=== PATIENT | female | born 1935 | race Caucasian/White ===

== ENCOUNTER 2019-04-28 00:51 | Inpatient (IN) | payer MEDICARE, BC ==
[2019-04-28] MEDS ORDERED: SODIUM CHLORIDE 0.9% 500 ML 500 ML IV STA (01:35)
[2019-04-28 02:50] LABS: Albumin 4.5 g/dL (3.5-5.0); Calcium 9.5 mg/dL (8.4-10.2); Total Bilirubin 0.5 mg/dL (0.2-1.3); Total Protein 7.8 g/dL (6.3-8.2)
[2019-04-28 02:51] LABS: Potassium 4.1 mmol/L (3.5-5.1)
[2019-04-28 03:01] LABS: Basophils # (A) 0.1 k/uL (0-0.2); Basophils % (A) 1 %; Eosinophils # (A) 0.3 k/uL (0-0.7); Eosinophils % (A) 4 %; HCT 43.3 % (34.0-46.0); HGB 14.2 gm/dL (11.4-16.0); Lymphocytes # (A) 1.4 k/uL (1.0-4.8); Lymphocytes % (A) 19 %; MCH 29.9 pg (25.0-35.0); MCHC 32.9 g/dL (31.0-37.0); Mean Platelet Volume 6.9; Monocytes # (A) 0.4 k/uL (0-1.0); Monocytes % (A) 6 %; Neutrophils # (A) 5.2 k/uL (1.3-7.7); Neutrophils % (A) 68 %; Platelet Count 250 k/uL (150-450); RBC 4.76 m/uL (3.80-5.40); RDW 12.9 % (11.5-15.5); WBC 7.6 k/uL (3.8-10.6)
[2019-04-28 03:10] LABS: Appearance,Urine Clear (Clear); Bacteria,Urine Rare /hpf; Bilirubin,Urine Negative (Negative); Blood,Urine Negative (Negative); Color,Urine Light Yellow; Glucose,Urine (UA) Negative (Negative); Ketones,Urine Negative (Negative); Leukocyte Esterase,Urine Small (Negative); Mucus,Urine Rare /hpf; Nitrite,Urine Negative (Negative); Protein,Urine Trace (Negative); RBC,Urine 1 /hpf (0-5); Specific Gravity,Urine 1.006 (1.001-1.035); Squamous Epithelial Cell,Urine <1 /hpf (0-4); Urobilinogen,Urine <2.0 mg/dL (<2.0); WBC,Urine 4 /hpf (0-5)
[2019-04-28 03:13] LABS: Creatine Kinase MB 1.2 ng/mL (0.0-2.4); Troponin I 0.025 ng/mL (0.000-0.034)
[2019-04-28] MEDS ORDERED: SODIUM CHLORIDE 0.9% 1,000 ML IV SCH (03:15)
--- NOTE | 2019-04-28 03:16 | US ---
EXAM: US Abdomen Limited, Right Upper Quadrant CLINICAL HISTORY: ITS.REASON US Reason: epigastric pain TECHNIQUE: Real-time ultrasound of the right upper quadrant with image documentation. COMPARISON: No relevant prior studies available. FINDINGS: Liver: The liver measures 13.7 cm in length. Cystic structures measuring up to 2.7 cm. Gallbladder: Distended gallbladder with cholelithiasis. No significant gallbladder wall thickening. Positive sonographic Grande's sign. Common bile duct: The common bile duct measures 7 mm. Pancreas: Prominent pancreatic duct. Pancreas not well seen. Right kidney: The right kidney is not well seen with large anechoic structures which may represent cysts, hydronephrosis, or other etiology. IMPRESSION: 1. Distended gallbladder with cholelithiasis. No significant gallbladder wall thickening or biliary dilatation. Positive sonographic Grande's sign. Correlate clinically regarding cholecystitis. 2. Prominent pancreatic duct. 3. The right kidney is not well seen with large anechoic structures which may represent cysts, hydronephrosis, or other etiology. 4. Hepatic cystic structures
--- NOTE | 2019-04-28 04:26 | ED ---
Abdominal Pain HPI - General Source: patient, family Mode of arrival: wheelchair Limitations: no limitations <Sigrid Morton - Last Filed: 04/28/19 18:16> <Maday Shannon - Last Filed: 04/28/19 22:12> - General Chief Complaint: Abdominal Pain Stated Complaint: Abdominal Pain Time Seen by Provider: 04/28/19 01:34 - History of Present Illness Initial Comments: The 84-year-old female presenting today for chief complaint of epigastric pain. Patient states that after taking a melatonin around 12 PM she began experiencing epigastric pain. She states that sharp at times radiates towards her back. Patient denies any chest pain or shortness of breath. Patient denies any cough fever chills or night sweats. Patient denies any diarrhea or vomiting. Patient states the pain has been consistent. Patient describes as a sharp pain. Patient denies any abuse of NSAIDs or chronic steroid use. She denies any a lcohol abuse. Patient denies history of PUD. Remaining review of systems negative. Upon arrival patient appears well signs of acute distress. Afebrile blood pressure elevated remaining her vital signs within acceptable limits. (Sigrid Morton) - Related Data Home Medications Medication Instructions Recorded Confirmed LORazepam [Ativan] 0.5 mg PO HS PRN 08/20/16 04/28/19 Metoprolol Succinate [Toprol XL] 25 mg PO QAM 08/20/16 04/28/19 amLODIPine [Norvasc] 10 mg PO QAM 08/20/16 04/28/19 Albuterol Inhaler [Ventolin Hfa 2 puff INHALATION RT-Q6H PRN 04/28/19 04/28/19 Inhaler] Previous Rx's Medication Instructions Recorded Carvedilol [Coreg] 3.125 mg PO BID #60 tablet 04/28/19 Omeprazole [PriLOSEC] 40 mg PO FELY-TRYEE #14 capsule. 04/28/19 Allergies Allergy/AdvReac Type Severity Reaction Status Date / Time azithromycin [From Zithromax] Allergy Rash/Hives Verified 08/20/16 14:02 fluconazole [From Diflucan] Allergy Unknown Verified 08/20/16 14:02 levofloxacin [From Levaquin] Allergy Rash/Hives Verified 08/20/16 14:02 Penicillins Allergy Rash/Hives Verified 08/20/16 14:02 Review of Systems ROS Other: All systems not noted in ROS Statement are negative. <Sigrid Morton - Last Filed: 04/28/19 18:16> ROS Other: All systems not noted in ROS Statement are negative. <Maday Shannon P - Last Filed: 04/28/19 22:12> ROS Statement: Those systems with pertinent positive or pertinent negative responses have been documented in the HPI. Past Medical History Past Medical History: Asthma, Cancer, Hypertension Additional Past Medical History / Comment(s): BREAST CA. History of Any Multi-Drug Resistant Organisms: None Reported Past Surgical History: Breast Surgery, Hysterectomy, Tonsillectomy Additional Past Surgical History / Comment(s): RIGHT BREAST LUMPECTOMY (NO CHEMO OR RAD). VEIN STRIPPING Past Anesthesia/Blood Transfusion Reactions: Postoperative Nausea & Vomiting (PONV) Past Psychological History: Anxiety Smoking Status: Never smoker Past Alcohol Use History: None Reported Past Drug Use History: None Reported - Past Family History Mother Family Medical History: Congestive Heart Failure (CHF) <Sigrid Morton - Last Filed: 04/28/19 18:16> General Exam Limitations: no limitations <Sigrid Morton - Last Filed: 04/28/19 18:16> - General Exam Comments Initial Comments: General: The patient is awake and alert, in no distress, and does not appear acutely ill. Eye: Pupils are equal, round and reactive to light, extra-ocular movements are intact. No nystagmus. There is normal conjunctiva bilaterally. No signs of i cterus. Ears, nose, mouth and throat: There are moist mucous membranes and no oral lesions. Neck: The neck is supple, there is no tenderness or JVD. Cardiovascular: There is a regular rate and rhythm. No murmur, rub or gallop is appreciated. Respiratory: Lungs are clear to auscultation, respirations are non-labored, breath sounds are equal. No wheezes, stridor, rales, or rhonchi. Gastrointestinal: Soft, non-distended, abdomen tender to RUQ palpation, (+) murphys sign, abdomen is without masses or organomegaly noted. There is no rebound or guarding present. No CVA tenderness. Bowel sounds are unremarkable. Musculoskeletal: Normal ROM, no tenderness. Strength 5/5. Sensation intact. Pulses equal bilaterally 2+. Neurological: A&O x 3. CN II-XII intact, There are no obvious motor or sensory deficits. Coordination appears grossly intact. Speech is normal. Skin: Skin is warm and dry and no rashes or lesions are noted. Psychiatric: Cooperative, appropriate mood & affect, normal judgment. (Sigrid Morton) Course Vital Signs 04/28/19 04/28/19 04/28/19 01:24 03:46 05:40 Temperature 98.2 F 98.1 F 97.9 F Pulse Rate 95 81 76 Respiratory 20 18 18 Rate Blood Pressure 156/89 183/97 167/90 O2 Sat by Pulse 98 96 94 L Oximetry Medical Decision Making - Lab Data Result diagrams: 04/28/19 02:19 04/28/19 02:19 <Sigrid Morton - Last Filed: 04/28/19 18:16> - Lab Data Result diagrams: 04/28/19 02:19 04/28/19 02:19 <Maday Shannon - Last Filed: 04/28/19 22:12> - Medical Decision Making 84-year-old female presenting today for chief complaint of epigastric pain that began shortly after 12 AM. She states it happened after taking melatonin. Patient was is a Grande sign on examination. Increased Alk Phos. US reveals cholelithiasis. CT revealed findings were suggestive of acute cholecystitis. Patient was placed nothing by mouth and given IV fluids as well as pain management in the emergency department. Patient will be admitted for surgical consultations. Discussed case with attending provider Dr. Shannon prior to patient admission, she spoke with admitting provider Dr. Torres. (Sigrid Morton) I personally saw and evaluated the patient, reviewed the patient's labs, imaging and agree with disposition. Patient care was discussed with surgery on-call Dr. Vargas who agrees with plan for admission to internal medicine with consult to general surgery. (Maday Shannon) - Lab Data Lab Results 04/28/19 04/28/19 04/28/19 Range/Units 02:19 02:19 02:19 WBC 7.6 (3.8-10.6) k/uL RBC 4.76 (3.80-5.40) m/uL Hgb 14.2 (11.4-16.0) gm/dL Hct 43.3 (34.0-46.0) % MCV 91.0 (80.0-100.0) fL MCH 29.9 (25.0-35.0) pg MCHC 32.9 (31.0-37.0) g/dL RDW 12.9 (11.5-15.5) % Plt Count 250 (150-450) k/uL Neutrophils % 68 % Lymphocytes % 19 % Monocytes % 6 % Eosinophils % 4 % Basophils % 1 % Neutrophils # 5.2 (1.3-7.7) k/uL Lymphocytes # 1.4 (1.0-4.8) k/uL Monocytes # 0.4 (0-1.0) k/uL Eosinophils # 0.3 (0-0.7) k/uL Basophils # 0.1 (0-0.2) k/uL Sodium 139 (137-145) mmol/L Potassium 4.1 (3.5-5.1) mmol/L Chloride 103 (98-107) mmol/L Carbon Dioxide 25 (22-30) mmol/L Anion Gap 11 mmol/L BUN 31 H (7-17) mg/dL Creatinine 1.39 H (0.52-1.04) mg/dL Est GFR (CKD-EPI)AfAm 40 (>60 ml/min/1.73 sqM) Est GFR (CKD-EPI)NonAf 35 (>60 ml/min/1.73 sqM) Glucose 120 H (74-99) mg/dL Calcium 9.5 (8.4-10.2) mg/dL Total Bilirubin 0.5 (0.2-1.3) mg/dL AST 34 (14-36) U/L ALT 14 (9-52) U/L Alkaline Phosphatase 143 H (38-126) U/L CK-MB (CK-2) 1.2 (0.0-2.4) ng/mL Troponin I 0.025 (0.000-0.034) ng/mL Total Protein 7.8 (6.3-8.2) g/dL Albumin 4.5 (3.5-5.0) g/dL Amylase 151 H (30-110) U/L Lipase 247 (23-300) U/L Urine Color Urine Appearance (Clear) Urine pH (5.0-8.0) Ur Specific [place] (1.001-1.035) Urine Protein (Negative) Urine Glucose (UA) (Negative) Urine Ketones (Negative) Urine Blood (Negative) Urine Nitrite (Negative) Urine Bilirubin (Negative) Urine Urobilinogen (<2.0) mg/dL Ur Leukocyte Esterase (Negative) Urine RBC (0-5) /hpf Urine WBC (0-5) /hpf Ur Squamous Epith Cells (0-4) /hpf Urine Bacteria (None) /hpf Urine Mucus (None) /hpf 04/28/19 Range/Units 02:56 WBC (3.8-10.6) k/uL RBC (3.80-5.40) m/uL Hgb (11.4-16.0) gm/dL Hct (34.0-46.0) % MCV (80.0-100.0) fL MCH (25.0-35.0) pg MCHC (31.0-37.0) g/dL RDW (11.5-15.5) % Plt Count (150-450) k/uL Neutrophils % % Lymphocytes % % Monocytes % % Eosinophils % % Basophils % % Neutrophils # (1.3-7.7) k/uL Lymphocytes # (1.0-4.8) k/uL Monocytes # (0-1.0) k/uL Eosinophils # (0-0.7) k/uL Basophils # (0-0.2) k/uL Sodium (137-145) mmol/L Potassium (3.5-5.1) mmol/L Chloride (98-107) mmol/L Carbon Dioxide (22-30) mmol/L Anion Gap mmol/L BUN (7-17) mg/dL Creatinine (0.52-1.04) mg/dL Est GFR (CKD-EPI)AfAm (>60 ml/min/1.73 sqM) Est GFR (CKD-EPI)NonAf (>60 ml/min/1.73 sqM) Glucose (74-99) mg/dL Calcium (8.4-10.2) mg/dL Total Bilirubin (0.2-1.3) mg/dL AST (14-36) U/L ALT (9-52) U/L Alkaline Phosphatase (38-126) U/L CK-MB (CK-2) (0.0-2.4) ng/mL Troponin I (0.000-0.034) ng/mL Total Protein (6.3-8.2) g/dL Albumin (3.5-5.0) g/dL Amylase (30-110) U/L Lipase (23-300) U/L Urine Color Light Yellow Urine Appearance Clear (Clear) Urine pH 8.0 (5.0-8.0) Ur Specific [place] 1.006 (1.001-1.035) Urine Protein Trace H (Negative) Urine Glucose (UA) Negative (Negative) Urine Ketones Negative (Negative) Urine Blood Negative (Negative) Urine Nitrite Negative (Negative) Urine Bilirubin Negative (Negative) Urine Urobilinogen <2.0 (<2.0) mg/dL Ur Leukocyte Esterase Small H (Negative) Urine RBC 1 (0-5) /hpf Urine WBC 4 (0-5) /hpf Ur Squamous Epith Cells <1 (0-4) /hpf Urine Bacteria Rare H (None) /hpf Urine Mucus Rare H (None) /hpf - EKG Data EKG Comments: Ventricular rate 73 bpm, DC interval 164 ms, QRS duration 94 ms, QT/QTC 406/447 normal sinus sinus rhythm. Incomplete right bundle-branch block noted. Left anterior fascicular block. No ST elevation or depression. Nonspecific T-wave. No previous for comparison. EKG was reviewed by attending provider. (Sigrid Morton) Disposition Is patient prescribed a controlled substance at d/c from ED?: No Time of Disposition: 04:44 Decision to Admit Reason: Admit from EC Decision Date: 04/28/19 Decision Time: 04:44 <Sigrid Morton - Last Filed: 04/28/19 18:16> <Maday Shannon - Last Filed: 04/28/19 22:12> Clinical Impression: Cholecystitis, Epigastric pain Disposition: ADMITTED IP TO THIS HOSP Condition: Stable
--- NOTE | 2019-04-28 04:27 | CT ---
EXAM: CT Abdomen and Pelvis With Intravenous Contrast CLINICAL HISTORY: ITS.REASON CT Reason: Pain TECHNIQUE: Axial computed tomography images of the abdomen and pelvis with intravenous contrast. CTDI is 9.3 mGy and DLP is 818.2 mGy-cm. This CT exam was performed using one or more of the following dose reduction techniques: automated exposure control, adjustment of the mA and/or kV according to patient size, and/or use of iterative reconstruction technique. COMPARISON: No relevant prior studies available. FINDINGS: Lung bases: Bibasilar atelectasis or pneumonitis. ABDOMEN: Liver: Multiple hepatic low-density lesions, measuring up to 2.7 cm. Gallbladder and bile ducts: Distended gallbladder with cholelithiasis and prominence of the gallbladder wall. Pancreas: Unremarkable as visualized. Spleen: Old granulomatous disease. Adrenals: Slight thickening of the adrenal glands. Kidneys and ureters: Bilateral renal hypodensities, the largest measures 10.2 cm on the right. No significant hydronephrosis. Small left renal calcification or calculus. Stomach and bowel: Scattered colonic diverticula. Mild fluid in small bowel loops, nonspecific. No significant bowel distension to suggest obstruction. PELVIS: Appendix: Appendix not visualized. Bladder: Unremarkable. Reproductive: Unremarkable as visualized. ABDOMEN and PELVIS: Intraperitoneal space: No free air. No significant fluid collection. Bones/joints: No acute fracture. Soft tissues: Small fat-containing umbilical hernia. Vasculature: Atherosclerotic disease. Lymph nodes: Unremarkable. IMPRESSION: 1. Distended gallbladder with cholelithiasis and prominence of the gallbladder wall. Correlate clinically regarding cholecystitis. 2. Additional incidental findings, as above.
[2019-04-28] MEDS ORDERED: NALOXONE 0.4 MG/ML 1 ML VIAL IV PRN (04:44)
[2019-04-28] MEDS ORDERED: MORPHINE SULFATE 4 MG/ML SYRINGE IV PRN (04:44)
[2019-04-28] MEDS ORDERED: ONDANSETRON 4 MG/2 ML VIAL IVP PRN (04:44)
[2019-04-28] MEDS: amLODIPine 10 MG TAB PO SCH ×2 (05:48→07:08)
[2019-04-28] MEDS: METOPROLOL SUCCINATE (ER) 25 MG TAB.ER.24H PO SCH ×2 (05:48→07:08)
[2019-04-28 06:47] VITALS: RESP 16
[2019-04-28 06:48] VITALS: PULSE 74
[2019-04-28 08:41] VITALS: BP 152/89; TEMP 97.7
--- NOTE | 2019-04-28 08:57 | P.GSCN ---
History of Present Illness Consult date: 04/28/19 Reason for Consult: Abdominal pain, cholelithiasis History of present illness: The patient is a 84-year-old female who had been in her usual state of health. Yesterday evening she was having a little trouble falling asleep so took a melatonin. She then began having abdominal pain in the upper midabdomen which radiated through to the back. She tried laying down and the pain worsened. She came into the emergency room because she was concerned that she could be having some heart problems. No previous history of heart disease. Typically she has no pain in her abdomen and that's what was worrying her. She has no fatty food dyscrasias does not typically have any heartburn or indigestion. Denies jaundice, tea-colored urine, acholic stool, blood in the stool, family history of gallbladder disease. She's feeling much better this morning and is hungry Review of Systems All systems: negative Past Medical History Past Medical History: Asthma, Cancer, Hypertension Additional Past Medical History / Comment(s): Right breast cancer History of Any Multi-Drug Resistant Organisms: None Reported Past Surgical History: Breast Surgery, Hysterectomy, Tonsillectomy Additional Past Surgical History / Comment(s): RIGHT BREAST LUMPECTOMY (NO CHEMO OR RAD). VEIN STRIPPING, jazzmine knee replacement, bladder sx Past Anesthesia/Blood Transfusion Reactions: Postoperative Nausea & Vomiting (PONV) Past Psychological History: Anxiety Smoking Status: Never smoker Past Alcohol Use History: None Reported Past Drug Use History: None Reported - Past Family History Mother Family Medical History: Congestive Heart Failure (CHF) Medications and Allergies Home Medications Medication Instructions Recorded Confirmed Type Aspirin 81 mg PO DAILY 08/20/16 04/28/19 History Cyanocobalamin [Vitamin B-12] 1 tab PO DAILY 08/20/16 04/28/19 History Hydrochlorothiazide [Hydrodiuril] 12.5 mg PO QAM 08/20/16 04/28/19 History LORazepam [Ativan] 0.5 mg PO HS PRN 08/20/16 04/28/19 History Latanoprost Ophth [Xalatan 0.005%] 1 drop BOTH EYES HS 08/20/16 04/28/19 History Metoprolol Succinate [Toprol XL] 25 mg PO QAM 10/07/16 06/15/19 History Montelukast [Singulair] 10 mg PO HS 08/20/16 04/28/19 History amLODIPine [Norvasc] 10 mg PO QAM 08/20/16 04/28/19 History Allergies Allergy/AdvReac Type Severity Reaction Status Date / Time azithromycin [From Zithromax] Allergy Rash/Hives Verified 08/20/16 14:02 fluconazole [From Diflucan] Allergy Unknown Verified 08/20/16 14:02 levofloxacin [From Levaquin] Allergy Rash/Hives Verified 08/20/16 14:02 Penicillins Allergy Rash/Hives Verified 08/20/16 14:02 Surgical - Exam Osteopathic Statement: *. No significant issues noted on an osteopathic structural exam other than those noted in the History and Physical/Consult. Vital Signs Temp Pulse Resp BP Pulse Ox 98.2 F 95 20 156/89 98 04/28/19 01:24 04/28/19 01:24 04/28/19 01:24 04/28/19 01:24 04/28/19 01:24 - General well developed, well nourished, no distress - Eyes normal ocular movement - Neck trachea midline - Respiratory normal respiratory effort, clear to auscultation - Cardiovascular Rhythm: regular - Abdomen Abdomen: soft, tender (very minimal tenderness in the right upper quadrant to deep palpation. The patient states this is significantly improved since last night), no guarding, no rigid, no rebound, no distended Hernia: no umbilical Results - Labs 04/28/19 02:19 04/28/19 02:19 Abnormal Lab Results - Last 24 Hours (Table) 04/28/19 04/28/19 Range/Units 02:19 02:56 BUN 31 H (7-17) mg/dL Creatinine 1.39 H (0.52-1.04) mg/dL Glucose 120 H (74-99) mg/dL Alkaline Phosphatase 143 H (38-126) U/L Amylase 151 H (30-110) U/L Urine Protein Trace H (Negative) Ur Leukocyte Esterase Small H (Negative) Urine Bacteria Rare H (None) /hpf Urine Mucus Rare H (None) /hpf Diabetes panel 04/28/19 Range/Units 02:19 Sodium 139 (137-145) mmol/L Potassium 4.1 (3.5-5.1) mmol/L Chloride 103 (98-107) mmol/L Carbon Dioxide 25 (22-30) mmol/L BUN 31 H (7-17) mg/dL Creatinine 1.39 H (0.52-1.04) mg/dL Glucose 120 H (74-99) mg/dL Calcium 9.5 (8.4-10.2) mg/dL AST 34 (14-36) U/L ALT 14 (9-52) U/L Alkaline Phosphatase 143 H (38-126) U/L Total Protein 7.8 (6.3-8.2) g/dL Albumin 4.5 (3.5-5.0) g/dL Calcium panel 04/28/19 Range/Units 02:19 Calcium 9.5 (8.4-10.2) mg/dL Albumin 4.5 (3.5-5.0) g/dL Pituitary panel 04/28/19 Range/Units 02:19 Sodium 139 (137-145) mmol/L Potassium 4.1 (3.5-5.1) mmol/L Chloride 103 (98-107) mmol/L Carbon Dioxide 25 (22-30) mmol/L BUN 31 H (7-17) mg/dL Creatinine 1.39 H (0.52-1.04) mg/dL Glucose 120 H (74-99) mg/dL Calcium 9.5 (8.4-10.2) mg/dL Adrenal panel 04/28/19 Range/Units 02:19 Sodium 139 (137-145) mmol/L Potassium 4.1 (3.5-5.1) mmol/L Chloride 103 (98-107) mmol/L Carbon Dioxide 25 (22-30) mmol/L BUN 31 H (7-17) mg/dL Creatinine 1.39 H (0.52-1.04) mg/dL Glucose 120 H (74-99) mg/dL Calcium 9.5 (8.4-10.2) mg/dL Total Bilirubin 0.5 (0.2-1.3) mg/dL AST 34 (14-36) U/L ALT 14 (9-52) U/L Alkaline Phosphatase 143 H (38-126) U/L Total Protein 7.8 (6.3-8.2) g/dL Albumin 4.5 (3.5-5.0) g/dL - Imaging CT scan - abdomen: report reviewed Assessment and Plan (1) Cholelithiasis Current Visit: Yes Status: Acute Code(s): K80.20 - CALCULUS OF GALLBLADDER W/O CHOLECYSTITIS W/O OBSTRUCTION SNOMED Code(s): 754087365 (2) Biliary colic Current Visit: Yes Status: Acute Code(s): K80.50 - CALCULUS OF BILE DUCT W/O CHOLANGITIS OR CHOLECYST W/O OBST SNOMED Code(s): 17464984 (3) Hypertension Current Visit: Yes Status: Acute Code(s): I10 - ESSENTIAL (PRIMARY) HYPERTENSION SNOMED Code(s): 83884606 (4) Asthma Current Visit: Yes Status: Acute Code(s): J45.909 - UNSPECIFIED ASTHMA, UNCOMPLICATED SNOMED Code(s): 318657080 (5) Epigastric pain Current Visit: Yes Status: Acute Code(s): R10.13 - EPIGASTRIC PAIN SNOMED Code(s): 58991044 Plan: Clinically the patient is significantly improved. No signs of acute cholecystitis at this time. We discussed the options for treatment of gallbladder disease. We'll go ahead and give her clear liquids and advance to a low-fat diet as tolerated. If she is able to tolerate that she can be discharged home and follow up with me as an outpatient to schedule laparoscopic cholecystectomy.
--- NOTE | 2019-04-28 15:31 | P.DS ---
Providers Date of admission: 04/28/19 05:34 Attending physician: Peyton Torres Consults: 04/28/19 04:45 Consult Physician Urgent Consulting Provider: Whit Vargas Consult Reason/Comments: cholecystitis Do you want consulting provider notified?: Yes Primary care physician: Yovanny Nolan Hospital Course: Please refer to my HPI Patient Condition at Discharge: Stable Plan - Discharge Summary Discharge Rx Participant: No New Discharge Prescriptions: New Carvedilol [Coreg] 3.125 mg PO BID #60 tablet Omeprazole [PriLOSEC] 40 mg PO AC-BRKFST #14 capsule.dr Discontinued Hydrochlorothiazide [Hydrodiuril] 25 mg PO DAILY No Action amLODIPine [Norvasc] 10 mg PO QAM Metoprolol Succinate [Toprol XL] 25 mg PO QAM LORazepam [Ativan] 0.5 mg PO HS PRN PRN Reason: Insomnia Albuterol Inhaler [Ventolin Hfa Inhaler] 2 puff INHALATION RT-Q6H PRN PRN Reason: Shortness Of Breath Discharge Medication List LORazepam [Ativan] 0.5 mg PO HS PRN 08/20/16 [History] Metoprolol Succinate [Toprol XL] 25 mg PO QAM 08/20/16 [History] amLODIPine [Norvasc] 10 mg PO QAM 08/20/16 [History] Albuterol Inhaler [Ventolin Hfa Inhaler] 2 puff INHALATION RT-Q6H PRN 04/28/19 [History] Carvedilol [Coreg] 3.125 mg PO BID #60 tablet 04/28/19 [Rx] Omeprazole [PriLOSEC] 40 mg PO AC-BRKFST #14 capsule. 04/28/19 [Rx] Follow up Appointment(s)/Referral(s): Yovanny Nolan DO [Primary Care Provider] - 3 Days Patient Instructions/Handouts: Cholecystitis (GEN) Discharge Disposition: HOME SELF-CARE
--- NOTE | 2019-04-28 15:31 | P.HPIM ---
History of Present Illness This is a pleasant 84-year-old female came in with compensable gastric abdominal pain sharp in nature radiating to the back and right upper quadrant abdominal pain. Patient is found to have cholelithiasis patient pain completely resolved at this time patient pain last added last night midnight. Pain is not associated with food. Patient denied any fever chills patient had moderate to severe pain. Patient denied any antecedent use. Patient was evaluated by general surgery and started her on diet if she is able to tolerate the diet recommended to discharge the patient to follow up with the surgery as an outpatient where they can evaluate for outpatient cholecystectomy. Patient appears to have chronic kidney disease with serum creatinine of 1.39 because of which I believe hydrochlorothiazide will be ineffective had a ch lorothiazide was discontinued patient blood pressure is fairly stable at this time it was elevated last night because of pain. As I'm discontinued and hydrochlorothiazide and her blood pressure is still on the high side will change metoprolol to Coreg. Patient will be discharged today patient is doing much better today. Patient's pain is noncardiac patient was actually concerned about cardiac chest pain because of which came to ER troponins and EKG within normal limits. Review of Systems REVIEW OF SYSTEMS: CONSTITUTIONAL: No fever, no malaise, no fatigue. HEENT: No recent visual problems or hearing problems. Denied any sore throat. CARDIOVASCULAR: No orthopnea, PND, no palpitations, no syncope. PULMONARY: No shortness of breath, no cough, no hemoptysis. GASTROINTESTINAL: No diarrhea, NEUROLOGICAL: No headaches, no weakness, no numbness. HEMATOLOGICAL: Denies any bleeding or petechiae. GENITOURINARY: Denies any burning micturition, frequency, or urgency. MUSCULOSKELETAL/RHEUMATOLOGICAL: Denies any joint pain, swelling, or any muscle pain. ENDOCRINE: Denies any polyuria or polydipsia. The rest of the 14-point review of systems is negative. Past Medical History Past Medical History: Asthma, Cancer, Hypertension Additional Past Medical History / Comment(s): Right breast cancer History of Any Multi-Drug Resistant Organisms: None Reported Past Surgical History: Breast Surgery, Hysterectomy, Tonsillectomy Additional Past Surgical History / Comment(s): RIGHT BREAST LUMPECTOMY (NO CHEMO OR RAD). VEIN STRIPPING, jazzmine knee replacement, bladder sx Past Anesthesia/Blood Transfusion Reactions: Postoperative Nausea & Vomiting (PONV) Past Psychological History: Anxiety Smoking Status: Never smoker Past Alcohol Use History: None Reported Past Drug Use History: None Reported - Past Family History Mother Family Medical History: Congestive Heart Failure (CHF) Medications and Allergies Home Medications Medication Instructions Recorded Confirmed Type LORazepam [Ativan] 0.5 mg PO HS PRN 08/20/16 04/28/19 History Metoprolol Succinate [Toprol XL] 25 mg PO QAM 08/20/16 04/28/19 History amLODIPine [Norvasc] 10 mg PO QAM 08/20/16 04/28/19 History Albuterol Inhaler [Ventolin Hfa 2 puff INHALATION RT-Q6H PRN 04/28/19 04/28/19 History Inhaler] Carvedilol [Coreg] 3.125 mg PO BID #60 tablet 04/28/19 Rx Omeprazole [PriLOSEC] 40 mg PO AC-BRKFST #14 capsule. 04/28/19 Rx Allergies Allergy/AdvReac Type Severity Reaction Status Date / Time azithromycin [From Zithromax] Allergy Rash/Hives Verified 08/20/16 14:02 fluconazole [From Diflucan] Allergy Unknown Verified 08/20/16 14:02 levofloxacin [From Levaquin] Allergy Rash/Hives Verified 08/20/16 14:02 Penicillins Allergy Rash/Hives Verified 08/20/16 14:02 Physical Exam Vitals: Vital Signs Temp Pulse Pulse Pulse Resp BP BP 04/28/19 08:39 97.7 F 16 04/28/19 08:00 74 16 04/28/19 06:46 73 16 174/92 04/28/19 06:41 98.1 F 74 19 04/28/19 05:40 97.9 F 76 18 167/90 04/28/19 03:46 98.1 F 81 18 183/97 04/28/19 01:24 98.2 F 95 20 156/89 BP Pulse Ox 04/28/19 08:39 152/89 94 L 04/28/19 08:00 04/28/19 06:46 95 04/28/19 06:41 193/81 91 L 04/28/19 05:40 94 L 04/28/19 03:46 96 04/28/19 01:24 98 Intake and Output 0604/28/19 04/28/19 06:59 14:59 22:59 Other: Weight 79.379 kg PHYSICAL EXAMINATION: GENERAL: The patient is alert and oriented x3, not in any acute distress. Well developed, well nourished. HEENT: Pupils are round and equally reacting to light. EOMI. No scleral icterus. No conjunctival pallor. Normocephalic, atraumatic. No pharyngeal erythema. No thyromegaly. CARDIOVASCULAR: S1 and S2 present. No murmurs, rubs, or gallops. PULMONARY: Chest is clear to auscultation, no wheezing or crackles. ABDOMEN: Soft, nontender, nondistended, normoactive bowel sounds. No palpable organomegaly. MUSCULOSKELETAL: No joint swelling or deformity. EXTREMITIES: No cyanosis, clubbing, or pedal edema. NEUROLOGICAL: Gross neurological examination did not reveal any focal deficits. SKIN: No rashes. Results CBC & Chem 7: 04/28/19 02:19 04/28/19 02:19 Labs: Abnormal Lab Results - Last 24 Hours (Table) 04/28/19 04/28/19 Range/Units 02:19 02:56 BUN 31 H (7-17) mg/dL Creatinine 1.39 H (0.52-1.04) mg/dL Glucose 120 H (74-99) mg/dL Alkaline Phosphatase 143 H (38-126) U/L Amylase 151 H (30-110) U/L Urine Protein Trace H (Negative) Ur Leukocyte Esterase Small H (Negative) Urine Bacteria Rare H (None) /hpf Urine Mucus Rare H (None) /hpf Thrombosis Risk Factor Assmnt - Choose All That Apply Any of the Below Risk Factors Present?: Yes Each Risk Factor Represents 3 Points: Age 75 years or older Thrombosis Risk Factor Assessment Total Risk Factor Score: 3 Thrombosis Risk Factor Assessment Level: Moderate Risk Assessment and Plan Plan: -Cholelithiasis without any cigarette cholecystitis: Patient will be discharged today follow-up with general surgery as an outpatient there is no clinical evidence of cholecystitis biliary colic resolved. Patient will be discharged on Prilosec as well empirically -Hypertension: Further management as mentioned above -History of breast cancer in remission -Anxiety disorder -Gastroesophageal reflux disease. Patient is being discharged today.
== END 2019-04-28 16:06 | disposition home or self-care (01) | DRG 446 ==
LOC: EC 00:51 → 4SSUR 05:34
PROVIDERS: ADMIT Hospitalist; ATTEND Hospitalist
DX: K80.70 Calculus of gallbladder and bile duct without cholecystitis without obstruction (principal); F41.9 Anxiety disorder, unspecified; I12.9 Hypertensive chronic kidney disease with stage 1 through stage 4 chronic kidney disease, or unspecified chronic kidney disease; J45.909 Unspecified asthma, uncomplicated; K21.9 Gastro-esophageal reflux disease without esophagitis; N18.9 Chronic kidney disease, unspecified; Z79.82 Long term (current) use of aspirin; Z79.899 Other long term (current) drug therapy; Z82.49 Family history of ischemic heart disease and other diseases of the circulatory system; Z85.3 Personal history of malignant neoplasm of breast; Z90.710 Acquired absence of both cervix and uterus; Z96.653 Presence of artificial knee joint, bilateral; Z88.1 Allergy status to other antibiotic agents; Z88.0 Allergy status to penicillin; Z88.8 Allergy status to other drugs, medicaments and biological substances
CPT/HCPCS: 36415; 74177; 76705; 80053; 81001; 82150; 82553; 83690; 84484; 85025; 87040; 93005; 96360; 99285

== ENCOUNTER 2021-03-15 14:30 | Emergency (ER) | payer MEDICARE, BC ==
[2021-03-15] MEDS ORDERED: ONDANSETRON 4 MG/2 ML VIAL IVP STA (14:39)
[2021-03-15] MEDS ORDERED: SODIUM CHLORIDE 0.9% 500 ML 500 ML IV STA (14:39)
--- NOTE | 2021-03-15 14:39 | ED ---
Nausea/Vomiting/Diarrhea HPI - General Stated complaint: Near Syncope Time Seen by Provider: 03/15/21 14:30 - History of Present Illness Initial comments: Patient is an 85-year-old female who presents to the emergency department with nausea and vomiting. Patient was at the [facility] with her daughter when she had sudden onset of nausea and vomiting. States that she just ate their sea rosales and began feeling sick. She felt as if she was given a passout. Denies having any chest pain or shortness of breath. No headaches or visual changes. No unilateral numbness or weakness. Patient arrives in continues to admits to nausea. She has not administered anything by EMS. She denies any abdominal pain. No fevers, chills or recent illnesses. No other alleviating, precipitating or modifying factors - Related Data Home Medications Medication Instructions Recorded Confirmed Metoprolol Succinate [Toprol XL] 25 mg PO DAILY 08/20/16 03/15/21 amLODIPine [Norvasc] 10 mg PO DAILY 08/20/16 03/15/21 Cholecalciferol [Vitamin D3 (25 25 mcg PO DAILY 03/15/21 03/15/21 Mcg = 1000 Iu)] Garlic 1 tab PO DAILY 03/15/21 03/15/21 Vit C/E/Zn/Coppr/Lutein/Zeaxan 1 cap PO DAILY 03/15/21 03/15/21 [Preservision Areds 2 Softgel] Youthful Brain Supplement 1 cap PO DAILY 03/15/21 03/15/21 Allergies Allergy/AdvReac Type Severity Reaction Status Date / Time azithromycin [From Zithromax] Allergy Rash/Hives Verified 03/15/21 16:06 fluconazole [From Diflucan] Allergy Unknown Verified 03/15/21 16:06 levofloxacin [From Levaquin] Allergy Rash/Hives Verified 03/15/21 16:06 Penicillins Allergy Rash/Hives Verified 03/15/21 16:06 Review of Systems ROS Statement: Those systems with pertinent positive or pertinent negative responses have been documented in the HPI. ROS Other: All systems not noted in ROS Statement are negative. Past Medical History Past Medical History: Asthma, Cancer, Hypertension Additional Past Medical History / Comment(s): BREAST CA. History of Any Multi-Drug Resistant Organisms: None Reported Past Surgical History: Breast Surgery, Hysterectomy, Tonsillectomy Additional Past Surgical History / Comment(s): RIGHT BREAST LUMPECTOMY (NO CHEMO OR RAD). VEIN STRIPPING Past Anesthesia/Blood Transfusion Reactions: Postoperative Nausea & Vomiting (PONV) Past Psychological History: Anxiety Past Alcohol Use History: None Reported Past Drug Use History: None Reported - Past Family History Mother Family Medical History: Congestive Heart Failure (CHF) General Exam General appearance: alert, in no apparent distress Head exam: Present: atraumatic, normocephalic, normal inspection Eye exam: Present: normal appearance, PERRL, EOMI. Absent: scleral icterus, conjunctival injection, periorbital swelling ENT exam: Present: normal exam, mucous membranes moist Neck exam: Present: normal inspection. Absent: tenderness, meningismus, lymphadenopathy Respiratory exam: Present: normal lung sounds bilaterally. Absent: respiratory distress, wheezes, rales, rhonchi, stridor Cardiovascular Exam: Present: regular rate, normal rhythm, normal heart sounds. Absent: systolic murmur, diastolic murmur, rubs, gallop, clicks GI/Abdominal exam: Present: soft, normal bowel sounds. Absent: distended, tenderness, guarding, rebound, rigid Extremities exam: Present: normal inspection, full ROM, normal capillary refill. Absent: tenderness, pedal edema, joint swelling, calf tenderness Back exam: Present: normal inspection Neurological exam: Present: alert, oriented X3, CN II-XII intact Psychiatric exam: Present: normal affect, normal mood Skin exam: Present: warm, dry, intact, normal color. Absent: rash Course Vital Signs 03/15/21 03/15/21 14:41 18:00 Temperature 97.4 F L Pulse Rate 60 67 Respiratory 18 18 Rate Blood Pressure 187/85 151/76 O2 Sat by Pulse 100 96 Oximetry Medical Decision Making - Medical Decision Making Upon arrival patient was placed into room 6. There are history and physical exam was performed. Patient placed on continuous pulse ox and cardiac monitoring. 12-lead EKG was obtained. Laboratory studies were conducted. The patient was given 4 mg of Zofran and 500 mL of normal saline. Laboratory studies are reviewed and demonstrated a potassium of 3.2. Urinalysis demonstrates occasional bacteria however patient is asymptomatic. I did discuss diagnosis, differential and treatment options. Patient states she feels better at this time and wants to go home. Daughter is at bedside and agrees with this decision. Patient will be given a Zofran starter pack. Instructed to take the medications 3 times daily as needed for nausea. Patient is given strict return parameters. Patient must return immediately to the emergency department should she have any new or worsening symptoms. She was follow-up without fail with her primary care doctor within 2 days. Patient understood this. Given written and verbal discharge instructions and discharged home in stable condition - Lab Data Result diagrams: 03/15/21 14:45 03/15/21 14:45 Lab Results 03/15/21 03/15/21 03/15/21 Range/Units 14:45 14:45 14:45 WBC 7.3 (3.8-10.6) k/uL RBC 4.61 (3.80-5.40) m/uL Hgb 14.2 (11.4-16.0) gm/dL Hct 41.4 (34.0-46.0) % MCV 89.9 (80.0-100.0) fL MCH 30.7 (25.0-35.0) pg MCHC 34.2 (31.0-37.0) g/dL RDW 13.3 (11.5-15.5) % Plt Count 217 (150-450) k/uL MPV 7.0 Neutrophils % 58 % Lymphocytes % 29 % Monocytes % 6 % Eosinophils % 3 % Basophils % 2 % Neutrophils # 4.2 (1.3-7.7) k/uL Lymphocytes # 2.1 (1.0-4.8) k/uL Monocytes # 0.5 (0-1.0) k/uL Eosinophils # 0.2 (0-0.7) k/uL Basophils # 0.1 (0-0.2) k/uL Sodium 140 (137-145) mmol/L Potassium 3.2 L (3.5-5.1) mmol/L Chloride 106 (98-107) mmol/L Carbon Dioxide 27 (22-30) mmol/L Anion Gap 7 mmol/L BUN 31 H (7-17) mg/dL Creatinine 1.32 H (0.52-1.04) mg/dL Est GFR (CKD-EPI)AfAm 42 (>60 ml/min/1.73 sqM) Est GFR (CKD-EPI)NonAf 37 (>60 ml/min/1.73 sqM) Glucose 126 H (74-99) mg/dL Plasma Lactic Acid Leopoldo 1.3 (0.7-2.0) mmol/L Calcium 9.0 (8.4-10.2) mg/dL Total Bilirubin 0.6 (0.2-1.3) mg/dL AST 30 (14-36) U/L ALT 12 (4-34) U/L Alkaline Phosphatase 112 (38-126) U/L Troponin I (0.000-0.034) ng/mL Total Protein 6.7 (6.3-8.2) g/dL Albumin 3.9 (3.5-5.0) g/dL Lipase 162 (23-300) U/L Urine Color Urine Appearance (Clear) Urine pH (5.0-8.0) Ur Specific Thornton (1.001-1.035) Urine Protein (Negative) Urine Glucose (UA) (Negative) Urine Ketones (Negative) Urine Blood (Negative) Urine Nitrite (Negative) Urine Bilirubin (Negative) Urine Urobilinogen (<2.0) mg/dL Ur Leukocyte Esterase (Negative) Urine RBC (0-5) /hpf Urine WBC (0-5) /hpf Ur Squamous Epith Cells (0-4) /hpf Urine Bacteria (None) /hpf 03/15/21 03/15/21 Range/Units 14:45 16:06 WBC (3.8-10.6) k/uL RBC (3.80-5.40) m/uL Hgb (11.4-16.0) gm/dL Hct (34.0-46.0) % MCV (80.0-100.0) fL MCH (25.0-35.0) pg MCHC (31.0-37.0) g/dL RDW (11.5-15.5) % Plt Count (150-450) k/uL MPV Neutrophils % % Lymphocytes % % Monocytes % % Eosinophils % % Basophils % % Neutrophils # (1.3-7.7) k/uL Lymphocytes # (1.0-4.8) k/uL Monocytes # (0-1.0) k/uL Eosinophils # (0-0.7) k/uL Basophils # (0-0.2) k/uL Sodium (137-145) mmol/L Potassium (3.5-5.1) mmol/L Chloride (98-107) mmol/L Carbon Dioxide (22-30) mmol/L Anion Gap mmol/L BUN (7-17) mg/dL Creatinine (0.52-1.04) mg/dL Est GFR (CKD-EPI)AfAm (>60 ml/min/1.73 sqM) Est GFR (CKD-EPI)NonAf (>60 ml/min/1.73 sqM) Glucose (74-99) mg/dL Plasma Lactic Acid Leopoldo (0.7-2.0) mmol/L Calcium (8.4-10.2) mg/dL Total Bilirubin (0.2-1.3) mg/dL AST (14-36) U/L ALT (4-34) U/L Alkaline Phosphatase (38-126) U/L Troponin I 0.016 (0.000-0.034) ng/mL Total Protein (6.3-8.2) g/dL Albumin (3.5-5.0) g/dL Lipase (23-300) U/L Urine Color Light Yellow Urine Appearance Clear (Clear) Urine pH 7.5 (5.0-8.0) Ur Specific Thornton 1.007 (1.001-1.035) Urine Protein Trace H (Negative) Urine Glucose (UA) Negative (Negative) Urine Ketones Negative (Negative) Urine Blood Negative (Negative) Urine Nitrite Negative (Negative) Urine Bilirubin Negative (Negative) Urine Urobilinogen <2.0 (<2.0) mg/dL Ur Leukocyte Esterase Trace H (Negative) Urine RBC 3 (0-5) /hpf Urine WBC 4 (0-5) /hpf Ur Squamous Epith Cells <1 (0-4) /hpf Urine Bacteria Occasional H (None) /hpf - EKG Data EKG Comments: EKG demonstrates a sinus bradycardia with a ventricular rate of 59. WV interval 154. QRS 96. QTC 435. No acute ST segment elevations or depressions. Disposition Clinical Impression: Nausea & vomiting, Hypokalemia Disposition: HOME SELF-CARE Condition: Stable Instructions (If sedation given, give patient instructions): Acute Nausea and Vomiting (ED) Additional Instructions: Please follow up with your PCP in 2-4 days. Return to the ED for any new or worsening symptoms. Take the Zofran every 8 hours as needed for nausea. Is patient prescribed a controlled substance at d/c from ED?: No Referrals: Yovanny Nolan DO [Primary Care Provider] - 1-2 days Time of Disposition: 17:14
[2021-03-15 14:45] VITALS: RESP 18; TEMP 97.4
[2021-03-15 15:02] LABS: Basophils # (A) 0.1 k/uL (0-0.2); Basophils % (A) 2 %; Eosinophils # (A) 0.2 k/uL (0-0.7); Eosinophils % (A) 3 %; HCT 41.4 % (34.0-46.0); HGB 14.2 gm/dL (11.4-16.0); Lymphocytes # (A) 2.1 k/uL (1.0-4.8); Lymphocytes % (A) 29 %; MCH 30.7 pg (25.0-35.0); MCHC 34.2 g/dL (31.0-37.0); MCV 89.9 fL (80.0-100.0); Monocytes # (A) 0.5 k/uL (0-1.0); Monocytes % (A) 6 %; Neutrophils # (A) 4.2 k/uL (1.3-7.7); Neutrophils % (A) 58 %; Platelet Count 217 k/uL (150-450); RBC 4.61 m/uL (3.80-5.40); RDW 13.3 % (11.5-15.5); WBC 7.3 k/uL (3.8-10.6)
[2021-03-15 15:11] LABS: Albumin 3.9 g/dL (3.5-5.0); Potassium 3.2 mmol/L (3.5-5.1); Total Bilirubin 0.6 mg/dL (0.2-1.3); Total Protein 6.7 g/dL (6.3-8.2)
[2021-03-15 16:11] LABS: Appearance,Urine Clear (Clear); Bacteria,Urine Occasional /hpf; Bilirubin,Urine Negative (Negative); Blood,Urine Negative (Negative); Color,Urine Light Yellow; Glucose,Urine (UA) Negative (Negative); Ketones,Urine Negative (Negative); Leukocyte Esterase,Urine Trace (Negative); Nitrite,Urine Negative (Negative); PH, Urine 7.5 (5.0-8.0); Protein,Urine Trace (Negative); RBC,Urine 3 /hpf (0-5); Specific Gravity,Urine 1.007 (1.001-1.035); Squamous Epithelial Cell,Urine <1 /hpf (0-4); Urobilinogen,Urine <2.0 mg/dL (<2.0); WBC,Urine 4 /hpf (0-5)
[2021-03-15] MEDS ORDERED: POTASSIUM CHLORIDE ER 20 MEQ TAB.ER PO STA (16:39)
[2021-03-15] MEDS ORDERED: ONDANSETRON 4 MG ODT STARTER PACK 2 TAB BTL PO STA (17:10)
[2021-03-15 18:01] VITALS: BP 151/76; PULSE 67
== END 2021-03-15 18:11 | disposition home or self-care (01) ==
LOC: EC 14:30
DX: R11.2 Nausea with vomiting, unspecified (principal); E87.6 Hypokalemia; I10 Essential (primary) hypertension; J45.909 Unspecified asthma, uncomplicated; Z85.3 Personal history of malignant neoplasm of breast; Z90.710 Acquired absence of both cervix and uterus; Z90.09 Acquired absence of other part of head and neck
CPT/HCPCS: 36415; 93005; 80053; 83605; 83690; 84484; 85025; 81001; 99284; 96374; J2405; S0119

== ENCOUNTER → 2021-03-25 | Outpatient (CLI) | payer MEDICARE, BC ==
--- NOTE | 2021-03-25 13:29 | US ---
EXAMINATION TYPE: US carotid duplex BILAT DATE OF EXAM: 03/25/2021 COMPARISON: NONE CLINICAL HISTORY: R55 Syncope. EXAM MEASUREMENTS: RIGHT: Peak Systolic Velocity (PSV) cm/sec ----- Right CCA: 64.2 ----- Right ICA: 64.2 ----- Right ECA: 61.6 ICA/CCA ratio: 1.0 RIGHT: End Diastole cm/sec ----- Right CCA: 16.2 ----- Right ICA: 15.4 ----- Right ECA: 9.2 LEFT: Peak Systolic Velocity (PSV) cm/sec ----- Left CCA: 51.0 ----- Left ICA: 68.1 ----- Left ECA: 48.1 ICA/CCA ratio: 1.3 LEFT: End Diastole cm/sec ----- Left CCA: 11.1 ----- Left ICA: 21.5 ----- Left ECA: 0.0 VERTEBRALS (direction of flow): Right Vertebral: Antegrade Left Vertebral: Antegrade Rhythm: Normal Atherosclerotic changes with moderate amount of calcified plaque. No stenosis seen. IMPRESSION: No evidence for hemodynamically significant stenosis. Criteria for Assigning % of Stenosis / Diameter reduction (Estimation based on the indirect measurements of the internal carotid artery velocities (ICA PSV). 1. Normal (no stenosis)=ICA PSV < 125 cm/s: ratio < 2.0: ICA EDV<40 cm/s. 2. Less than 50% stenosis=ICA PSV < 125 cm/s: ratio < 2.0: ICA EDV<40 cm/s. 3. 50 to 69% stenosis=ICA PSV of 125 to 230 cm/s: ration 2.0 ? 4.0: ICA EDV 40-100 cm/s. 4. Greater than 70% stenosis to near occlusion= ICA PSV > 230 cm/s: ratio > 4.0: ICA EDV > 100 cm/s. 5. Near occlusion= ICA PSV velocities may be low or undetectable: variable ratio and ICA EDV. 6. Total occlusion=unable to detect flow.
--- NOTE | 2021-03-26 11:10 | ECHOF ---
Referral Reason:R01.1 murmur MEASUREMENTS -------- HEIGHT: 165.1 cm WEIGHT: 82.6 kg BP: IVSd: 1.1 cm (0.6 - 1.1) LVIDd: 3.9 cm (3.9 - 5.3) LVPWd: 1.3 cm (0.6 - 1.1) IVSs: 1.6 cm LVIDs: 2.5 cm LVPWs: 1.6 cm LAESV Index (A-L): 26.69 ml/m Ao Diam: 3.1 cm (2.0 - 3.7) MV EXCURSION: 22.907 mm (> 18.000) MV EF SLOPE: 70 mm/s (70 - 150) EPSS: 0.3 cm AV maxP.04 mmHg AV meanP.46 mmHg RAP: 5.00 mmHg RVSP: 32.91 mmHg FINDINGS -------- Sinus rhythm. This was a technically good study. The left ventricular size is normal. There is mild concentric left ventricular hypertrophy. Overa ll left ventricular systolic function is low-normal with, an EF between 50 - 55 %. The right ventricle is normal in size. Normal LA size by volume 22+/-6 ml/m2. The right atrial size is normal. There is moderate aortic stenosis present. Peak/mean gradient across the Aortic Valve is 33.04mmHg / 15.46mmHg. Mild mitral annular calcification present. Mild mitral regurgitation is present. The peak and me an MV gradients are 14.29mmHg 3.44mmHg as measured by doppler. Mild tricuspid regurgitation present. The right ventricular systolic pressure, as measured by Doppl er, is 32.91mmHg. There is no pulmonic regurgitation present. The aortic root size is normal. There is no pericardial effusion. CONCLUSIONS -------- 1. The left ventricular size is normal. 2. There is mild concentric left ventricular hypertrophy. 3. Overall left ventricular systolic function is low-normal with, an EF between 50 - 55 %. 4. The right ventricle is normal in size. 5. Normal LA size by volume 22+/-6 ml/m2. 6. The right atrial size is normal. 7. There is moderate aortic stenosis present. 8. Peak/mean gradient across the Aortic Valve is 33.04mmHg / 15.46mmHg. 9. Mild mitral annular calcification present. 10. Mild mitral regurgitation is present. 11. The peak and mean MV gradients are 14.29mmHg 3.44mmHg as measured by doppler. 12. Mild tricuspid regurgitation present. 13. The right ventricular systolic pressure, as measured by Doppler, is 32.91mmHg. 14. There is no pulmonic regurgitation present. 15. The aortic root size is normal. 16. There is no pericardial effusion. NON DESTRUCTIVE EVALUATION MANAGER: Terri Moyer RDCS
== END | disposition home or self-care (01) ==
LOC: RADECHMAIN 12:09
PROVIDERS: ATTEND Family Medicine
DX: I08.3 Combined rheumatic disorders of mitral, aortic and tricuspid valves (principal); R55 Syncope and collapse
CPT/HCPCS: 93306; 93880

== ENCOUNTER 2021-11-26 10:31 | Inpatient (IN) | payer MEDICARE, BC ==
[2021-11-26 11:27] LABS: Basophils % (A) 1 %; Eosinophils % (A) 1 %; HCT 41.9 % (34.0-46.0); HGB 13.9 gm/dL (11.4-16.0); Lymphocytes % (A) 29 %; MCH 30.4 pg (25.0-35.0); MCHC 33.2 g/dL (31.0-37.0); MCV 91.6 fL (80.0-100.0); Mean Platelet Volume 7.6; Monocytes # (A) 0.4 k/uL (0-1.0); Monocytes % (A) 11 %; Neutrophils # (A) 1.8 k/uL (1.3-7.7); Neutrophils % (A) 54 %; Platelet Count 189 k/uL (150-450); RBC 4.57 m/uL (3.80-5.40); RDW 13.4 % (11.5-15.5); WBC 3.4 k/uL (3.8-10.6)
[2021-11-26 11:39] LABS: Albumin 3.8 g/dL (3.5-5.0); Calcium 8.9 mg/dL (8.4-10.2); Magnesium 1.8 mg/dL (1.6-2.3); Potassium 3.4 mmol/L (3.5-5.1); Total Bilirubin 0.5 mg/dL (0.2-1.3)
--- NOTE | 2021-11-26 11:41 | XR ---
EXAMINATION TYPE: XR chest 2V DATE OF EXAM: 11/26/2021 COMPARISON: 10/31/2017 , 10/04/2017 HISTORY: 86-year-old female syncope, altered mental status TECHNIQUE: AP and lateral views FINDINGS: Heart normal size. Mild elongation thoracic aorta. Strandy areas of atelectasis in the lower lungs. M ild hyperinflation. Large appearance to the main right pulmonary artery on the lateral view. Some germaine gical clips in the right axilla. IMPRESSION: Large right main pulmonary artery on the lateral view. This suggests underlying pulmonary arterial hy pertension. Strandy atelectasis in the lower lungs. Otherwise, no definite acute process.
[2021-11-26 12:00] LABS: INR 1.1 (<1.2); Partial Thromboplastin Time 26.1 sec (22.0-30.0); Prothrombin Time 11.4 sec (9.0-12.0)
--- NOTE | 2021-11-26 13:47 | NM ---
EXAMINATION TYPE: NM pul perfusion DATE OF EXAM: 11/26/2021 COMPARISON: Radiographs obtained. HISTORY: 86-year-old female shortness of breath, assess for PE TECHNIQUE: Following administration of 5.2 mCi Tc 99m MAA. Images obtained post injection. FINDINGS: No ventilation images were acquired. No discrete perfusion defect is seen. IMPRESSION: Very low probability for pulmonary embolus.
[2021-11-26] MEDS ORDERED: NALOXONE 0.4 MG/ML 1 ML VIAL IV PRN (14:06)
--- NOTE | 2021-11-26 14:22 | ED ---
General Adult HPI - General Chief complaint: Syncope Stated complaint: Syncope Time Seen by Provider: 11/26/21 10:41 Source: patient, EMS, RN notes reviewed, old records reviewed Mode of arrival: EMS Limitations: altered mental status, physical limitation - History of Present Illness Initial comments: Patient is an 86-year-old female with past medical history remarkable for hypertension and presents emergency Department following a syncopal episode. Patient has 1 time history of syncopal episode last year. She states she is eating a meal with family and sitting when she expenses syncopal episode. Her head rolled down in front of her and she slumped over. She woke up afterwards. She does not recall the incident. Denies any chest pain, shortness breath, abdominal pain, nausea, vomiting. Patient was recently diagnosed with COVID-19. She is not vaccinated. She is not on blood thinners. Did not hit her head. Has no other acute complaints at this time. Patient presents following syncopal episode. - Related Data Home Medications Medication Instructions Recorded Confirmed Metoprolol Succinate [Toprol XL] 25 mg PO DAILY 08/20/16 11/26/21 amLODIPine [Norvasc] 10 mg PO DAILY 08/20/16 11/26/21 Albuterol Sulfate [Proair Hfa] 2 puff INHALATION RT-QID 11/26/21 11/26/21 Fluticasone Propionate [Flovent 2 puff INHALATION RT-BID 11/26/21 11/26/21 Hfa 44 mcg] Allergies Allergy/AdvReac Type Severity Reaction Status Date / Time azithromycin [From Zithromax] Allergy Rash/Hives Verified 11/26/21 13:00 fluconazole [From Diflucan] Allergy Unknown Verified 11/26/21 13:00 levofloxacin [From Levaquin] Allergy Rash/Hives Verified 11/26/21 13:00 Penicillins Allergy Rash/Hives Verified 11/26/21 13:00 Review of Systems ROS Statement: Those systems with pertinent positive or pertinent negative responses have been documented in the HPI. Review of Systems: CONST: Denies fever EYES: Denies blurry vision ENT: Denies nasal congestion C/V: Denies Chest pain RESP: Denies shortness of breath GI: Denies abdominal pain : Denies dysuria SKIN: Denies rash. MSK: Denies joint pain. NEURO: Denies headache ROS Other: All systems not noted in ROS Statement are negative. Past Medical History Past Medical History: Asthma, Cancer, Hypertension Additional Past Medical History / Comment(s): BREAST CA. History of Any Multi-Drug Resistant Organisms: None Reported Past Surgical History: Breast Surgery, Hysterectomy, Tonsillectomy Additional Past Surgical History / Comment(s): RIGHT BREAST LUMPECTOMY (NO CHEMO OR RAD). VEIN STRIPPING Past Anesthesia/Blood Transfusion Reactions: Postoperative Nausea & Vomiting (PONV) Past Psychological History: Anxiety Smoking Status: Never smoker Past Alcohol Use History: None Reported Past Drug Use History: None Reported - Past Family History Mother Family Medical History: Congestive Heart Failure (CHF) General Exam - General Exam Comments Initial Comments: General: Appears in no acute distress. HEAD: Normal with no signs of head trauma. EYES: PERRLA, EOMI, conjunctiva normal, no discharge. ENT: Hearing grossly intact, normal oropharynx. RESPIRATORY: Clear breath sounds bilaterally. No wheezes, rales, or rhonchi. C/V: Regular rate and rhythm. S1 and S2 auscultated, no edema, peripheral pulses 2+ and intact throughout ABD: Abd is soft, nontender, nondistended EXT: Normal range of motion, no obvious deformity SKIN: No rashes or lesions observed on exposed skin. NEURO: Alert and oriented x 4. Cranial nerves II-XII intact. No focal sensory or strength deficits. Able to stand up without difficulty. Does not have any signs of orthostatic symptoms. NIH is 0. GCS is 15. Limitations: altered mental status, physical limitation Course Vital Signs 11/26/21 11/26/21 11/26/21 10:34 10:41 13:48 Temperature 97.3 F L Pulse Rate 68 78 Pulse Rate [ 70 Folding Machine Feeder ] Respiratory 18 22 Rate Blood Pressure 197/93 167/82 O2 Sat by Pulse 99 97 Oximetry 11/26/21 15:34 Temperature 98.0 F Pulse Rate 75 Pulse Rate [ Folding Machine Feeder ] Respiratory 18 Rate Blood Pressure 185/104 O2 Sat by Pulse 98 Oximetry Medical Decision Making - Medical Decision Making Based on the patient's presentation and physical exam, patient is a 19-positive with concern for syncopal episode at home. She is not hypoxic and is not in respiratory distress. She not take her antihypertensives this morning she'll be provided with. We will obtain basic laboratory studies including cardiac workup and d-dimer. Patient was in agreement this plan. She will receive an aspirin in addition to her blood pressure medications. Patient's EKG shows no signs of acute ischemia. Chest x-ray reveals large pulmonary artery but otherwise no acute cardiopulmonary process. Laboratory studies are remarkable for a mild leukopenia with a white blood cell count at 3.4, elevated d-dimer of 1.48, as well as an elevated BUN/creatinine setting of CK D. Troponin is normal at 0.034. Covid is positive. I expect the patient that I would like to obtain imaging 12 possibly a pulmonary embolism due to the elevated d-dimer. We also discussed the relatively normal remaining workup. She was in agreement this plan. Patient cannot receive IV contrast due to her kidney function therefore VQ scan will be ordered. VQ scan was remarkable for very low probability for PE. On reevaluation, patient remains stable. I discussed with her as well as family that I would like to admit the hospital for telemetry observation. They were in agreement this plan. We'll trend her troponins as well. She does not have a pulmonary embolism. As the patient is being admitted for syncope and under COVID-19 infection, I did discuss monoclonal antibody therapy, and they accepted. She'll be administered monoclonal antibodies as well. Spoke with the admitting team under Dr. Quan was in agreement the plan. He requested orthostatic vital signs. I discussed this and conveyed this to the nurse. - Lab Data Result diagrams: 11/26/21 11:02 11/26/21 11:02 Lab Results 11/26/21 11/26/21 11/26/21 Range/Units 11:02 11:02 11:02 WBC 3.4 L (3.8-10.6) k/uL RBC 4.57 (3.80-5.40) m/uL Hgb 13.9 (11.4-16.0) gm/dL Hct 41.9 (34.0-46.0) % MCV 91.6 (80.0-100.0) fL MCH 30.4 (25.0-35.0) pg MCHC 33.2 (31.0-37.0) g/dL RDW 13.4 (11.5-15.5) % Plt Count 189 (150-450) k/uL MPV 7.6 Neutrophils % 54 % Lymphocytes % 29 % Monocytes % 11 % Eosinophils % 1 % Basophils % 1 % Neutrophils # 1.8 (1.3-7.7) k/uL Lymphocytes # 1.0 (1.0-4.8) k/uL Monocytes # 0.4 (0-1.0) k/uL Eosinophils # 0.0 (0-0.7) k/uL Basophils # 0.0 (0-0.2) k/uL PT 11.4 (9.0-12.0) sec INR 1.1 (<1.2) APTT 26.1 (22.0-30.0) sec D-Dimer 1.48 H (<0.60) mg/L FEU Sodium 135 L (137-145) mmol/L Potassium 3.4 L (3.5-5.1) mmol/L Chloride 101 (98-107) mmol/L Carbon Dioxide 24 (22-30) mmol/L Anion Gap 10 mmol/L BUN 27 H (7-17) mg/dL Creatinine 1.43 H (0.52-1.04) mg/dL Est GFR (CKD-EPI)AfAm 38 (>60 ml/min/1.73 sqM) Est GFR (CKD-EPI)NonAf 33 (>60 ml/min/1.73 sqM) Glucose 117 H (74-99) mg/dL Calcium 8.9 (8.4-10.2) mg/dL Magnesium 1.8 (1.6-2.3) mg/dL Total Bilirubin 0.5 (0.2-1.3) mg/dL AST 34 (14-36) U/L ALT 15 (4-34) U/L Alkaline Phosphatase 118 (38-126) U/L Troponin I (0.000-0.034) ng/mL Total Protein 7.0 (6.3-8.2) g/dL Albumin 3.8 (3.5-5.0) g/dL Coronavirus (PCR) (Not Detectd) 11/26/21 11/26/21 Range/Units 11:02 13:48 WBC (3.8-10.6) k/uL RBC (3.80-5.40) m/uL Hgb (11.4-16.0) gm/dL Hct (34.0-46.0) % MCV (80.0-100.0) fL MCH (25.0-35.0) pg MCHC (31.0-37.0) g/dL RDW (11.5-15.5) % Plt Count (150-450) k/uL MPV Neutrophils % % Lymphocytes % % Monocytes % % Eosinophils % % Basophils % % Neutrophils # (1.3-7.7) k/uL Lymphocytes # (1.0-4.8) k/uL Monocytes # (0-1.0) k/uL Eosinophils # (0-0.7) k/uL Basophils # (0-0.2) k/uL PT (9.0-12.0) sec INR (<1.2) APTT (22.0-30.0) sec D-Dimer (<0.60) mg/L FEU Sodium (137-145) mmol/L Potassium (3.5-5.1) mmol/L Chloride (98-107) mmol/L Carbon Dioxide (22-30) mmol/L Anion Gap mmol/L BUN (7-17) mg/dL Creatinine (0.52-1.04) mg/dL Est GFR (CKD-EPI)AfAm (>60 ml/min/1.73 sqM) Est GFR (CKD-EPI)NonAf (>60 ml/min/1.73 sqM) Glucose (74-99) mg/dL Calcium (8.4-10.2) mg/dL Magnesium (1.6-2.3) mg/dL Total Bilirubin (0.2-1.3) mg/dL AST (14-36) U/L ALT (4-34) U/L Alkaline Phosphatase (38-126) U/L Troponin I 0.034 (0.000-0.034) ng/mL Total Protein (6.3-8.2) g/dL Albumin (3.5-5.0) g/dL Coronavirus (PCR) Detected A (Not Detectd) - EKG Data -: EKG Interpreted by Me EKG Comments: 12-lead Electrocardiogram Interpretation Note EKG was reviewed and interpreted by myself. 12-lead ECG performed at 1045 is interpreted by me as revealing, sinus rhythm with PACs at a rate of 70 beats per minute. Left axis deviation. HI interval is 142 ms, QRS duration is 80 ms, QTc is 453 ms.. There were no ST or T wave abnormalities to suggest myocardial ischemia or injury. R wave progression across the precordium was satisfactory. By my interpretation this EKG is non-diagnostic for acute ischemia. Disposition Clinical Impression: Syncope Disposition: ADMITTED IP TO THIS HOSP Condition: Stable
[2021-11-26] MEDS ORDERED: BAMLANIVIMAB (EUA) 700 MG, ETESEVIMAB (EUA) 1,400 MG in SODIUM CHLORIDE 0.9% 100 ML IVPB ONE (15:00)
[2021-11-26] MEDS ORDERED: SODIUM CHLORIDE 0.9% 50 ML IVPB ONE (15:30)
[2021-11-26] MEDS ORDERED: amLODIPine 10 MG TAB PO STA (15:40)
[2021-11-26] MEDS ORDERED: METOPROLOL SUCCINATE (ER) 25 MG TAB.ER.24H PO STA (15:40)
[2021-11-26] MEDS ORDERED: ASPIRIN 81 MG PO STA (16:11)
[2021-11-26] MEDS: ALBUTEROL HFA INHALER INHALATION SCH ×2 (18:12→21:02)
[2021-11-26] MEDS: MELATONIN 1 MG TAB PO SCH (21:07)
[2021-11-26] MEDS: ACETAMINOPHEN TAB 500 MG TAB PO PRN (21:23)
[2021-11-26] MEDS ORDERED: CALCIUM CARBONATE 500 MG CHEWABLE PO PRN (22:33)
[2021-11-26] MEDS ORDERED: LACTULOSE 20 GM/30 ML CUP PO PRN (22:33)
[2021-11-26] MEDS ORDERED: ALPRAZolam 0.25 MG TAB PO PRN (22:33)
[2021-11-26] MEDS ORDERED: ONDANSETRON 4 MG/2 ML VIAL IVP PRN (22:33)
--- NOTE | 2021-11-26 22:35 | P.HPIM ---
History of Present Illness H&P Date: 11/26/21 Chief Complaint: Past out This is a pleasant 86-year-old patient who follows with Dr. Nolan. Chronic stable medical conditions include asthma, hypertension. Patient not a good historian. As per the ER physician, patient is eating a meal with the family went head down and she slumped over. She woke up after wards. Patient did not recall the event. She denied any chest pain or shortness of breath at that time. No nausea vomiting. Recently diagnosed with COVID 19. Not vaccinated against the same. Patient does not remember why she is here when I talked to her. And is pleasantly confused. Denies any chest pain or palpitation. No focal weakness. No change in speech or any headache or change in vision. Review of systems: GEN.: None EYES: None HEENT: None NECK: None RESPIRATORY: None CARDIOVASCULAR: None GASTROINTESTINAL: None GENITOURINARY: None MUSCULOSKELETAL: None LYMPHATICS: None HEMATOLOGICAL: None PSYCHIATRY: Forgetful] NEUROLOGICAL: As above] Past medical history to include: Asthma, hypertension, breast cancer Social history: Denies any history of smoking or alcohol. Lives with her daughter. Family history: Congestive heart failure Physical examination: VITAL SIGNS: 98, 75, 18, 185/104, 98% room air GENERAL: BMI 30.7, laying in bed, comfortable. EYES: Pupils equal. Conjunctiva normal. HEENT: External appearance of nose and ears normal, oral cavity grossly normal. NECK: JVD not raised; masses not palpable. HEART: First and second heart sounds are normal; no edema. LUNGS: Respiratory rate normal; clear to auscultation. ABDOMEN: Soft, nontender, liver spleen not palpable, no masses palpable. PSYCH: Able to answer simple questions. Cannot tell me why she is here.l. MUSCULOSKELETAL:No Clubbing/cyanosis;muscles-grossly intact. Evidence of OA NEUROLOGICAL: Cranial nerves grossly intact; no facial asymmetry, power and sensation grossly intact. LYMPHATICS: No lymph nodes palpable in the axilla and neck INVESTIGATIONS, reviewed in the clinical context: White count 3.4 hemoglobin 13.9 platelets 189 d-dimer 1.48 sodium 135 potassium 3.4. 27 creatinine 1.43 Troponin I 0.034, 0.035, 0.047 Coronavirus [PCR]: Detected EKG tracing personally reviewed by me-normal sinus rhythm. Chest x-ray film personally reviewed by me-prominent right pulmonary artery. No obvious infiltrates Assessment and plan: -Episode of syncope. Patient not a very good historian. As per the ER report no chest pain or shortness of breath reported. He to rule out arrhythmia. Check orthostatic. -COVID 19, asymptomatic. Patient denies any shortness of breath or cough. Pulse ox is good. Vitamin C vitamin D zinc. -Cognitive impairment -Essential hypertension, uncontrolled Unclear if patient missed her morning medications. Norvasc 10 mg a day, Toprol-XL 25 mg a day -Intermittent asthma Pro-air HFA 2 puffs 4 times a day Telemetry. Orthostatic. Resume home medications. Subcu Lovenox. 2-D echocardiogram. Past Medical History Past Medical History: Asthma, Cancer, Hypertension Additional Past Medical History / Comment(s): BREAST CA. History of Any Multi-Drug Resistant Organisms: None Reported Past Surgical History: Breast Surgery, Hysterectomy, Tonsillectomy Additional Past Surgical History / Comment(s): RIGHT BREAST LUMPECTOMY (NO CHEMO OR RAD). VEIN STRIPPING Past Anesthesia/Blood Transfusion Reactions: Postoperative Nausea & Vomiting (PONV) Past Psychological History: Anxiety Smoking Status: Never smoker Past Alcohol Use History: None Reported Past Drug Use History: None Reported - Past Family History Mother Family Medical History: Congestive Heart Failure (CHF) Medications and Allergies Home Medications Medication Instructions Recorded Confirmed Type Metoprolol Succinate [Toprol XL] 25 mg PO DAILY 08/20/16 11/26/21 History amLODIPine [Norvasc] 10 mg PO DAILY 08/20/16 11/26/21 History Albuterol Sulfate [Proair Hfa] 2 puff INHALATION RT-QID 11/26/21 11/26/21 History Fluticasone Propionate [Flovent 2 puff INHALATION RT-BID 11/26/21 11/26/21 History Hfa 44 mcg] Allergies Allergy/AdvReac Type Severity Reaction Status Date / Time azithromycin [From Zithromax] Allergy Rash/Hives Verified 11/26/21 13:00 fluconazole [From Diflucan] Allergy Unknown Verified 11/26/21 13:00 levofloxacin [From Levaquin] Allergy Rash/Hives Verified 11/26/21 13:00 Penicillins Allergy Rash/Hives Verified 11/26/21 13:00 Physical Exam Vitals: Vital Signs Temp Pulse Pulse Resp BP BP Pulse Ox 11/26/21 20:00 97.7 F 80 17 174/80 95 11/26/21 17:07 18 11/26/21 16:23 98 F 72 18 204/97 98 11/26/21 15:34 98.0 F 75 18 185/104 98 11/26/21 13:48 78 22 167/82 97 11/26/21 10:41 70 11/26/21 10:34 97.3 F L 68 18 197/93 99 Intake and Output 11/26/21 11/26/21 11/26/21 06:59 14:59 22:59 Other: Weight 86.183 kg 86.183 kg Results CBC & Chem 7: 11/26/21 11:02 11/26/21 11:02 Labs: Abnormal Lab Results - Last 24 Hours (Table) 11/26/21 11/26/21 11/26/21 Range/Units 11:02 11:02 11:02 WBC 3.4 L (3.8-10.6) k/uL D-Dimer 1.48 H (<0.60) mg/L FEU Sodium 135 L (137-145) mmol/L Potassium 3.4 L (3.5-5.1) mmol/L BUN 27 H (7-17) mg/dL Creatinine 1.43 H (0.52-1.04) mg/dL Glucose 117 H (74-99) mg/dL Troponin I (0.000-0.034) ng/mL Coronavirus (PCR) (Not Detectd) 11/26/21 11/26/21 11/26/21 Range/Units 13:48 17:31 20:54 WBC (3.8-10.6) k/uL D-Dimer (<0.60) mg/L FEU Sodium (137-145) mmol/L Potassium (3.5-5.1) mmol/L BUN (7-17) mg/dL Creatinine (0.52-1.04) mg/dL Glucose (74-99) mg/dL Troponin I 0.035 H* 0.047 H* (0.000-0.034) ng/mL Coronavirus (PCR) Detected A (Not Detectd) Thrombosis Risk Factor Assmnt - Choose All That Apply Each Risk Factor Represents 3 Points: Age 75 years or older Other congenital or acquired thrombophilia - If yes, enter type in comment: No Thrombosis Risk Factor Assessment Total Risk Factor Score: 3 Thrombosis Risk Factor Assessment Level: Moderate Risk
[2021-11-27] MEDS: ENOXAPARIN 40 MG/0.4 ML SYRINGE SQ SCH (07:44)
[2021-11-27] MEDS: CHOLECALCIFEROL 125 MCG (5000 IU) TABLET PO SCH (07:44)
[2021-11-27] MEDS: amLODIPine 10 MG TAB PO SCH (07:44)
[2021-11-27] MEDS: ASCORBIC ACID 500 MG TAB PO SCH ×2 (07:45→20:55)
[2021-11-27] MEDS: ZINC SULFATE 220 MG CAP PO SCH (07:45)
--- NOTE | 2021-11-27 09:17 | ECHOF ---
Referral Reason:pos troponin MEASUREMENTS -------- HEIGHT: 167.6 cm WEIGHT: 86.2 kg BP: RVIDd: 1.9 cm (< 3.3) IVSd: 2.2 cm (0.6 - 1.1) LVIDd: 3.4 cm (3.9 - 5.3) LVPWd: 1.4 cm (0.6 - 1.1) IVSs: 2.5 cm LVIDs: 1.7 cm LVPWs: 2.4 cm Ao Diam: 3.1 cm (2.0 - 3.7) AV Cusp: 1.1 cm (1.5 - 2.6) LA Diam: 3.0 cm (2.7 - 3.8) MV E Avery: 0.99 m/s MV DecT: 432 ms MV A Avery: 1.61 m/s MV E/A Ratio: 0.61 AV maxP.73 mmHg AV meanP.20 mmHg RAP: 5.00 mmHg RVSP: 22.92 mmHg FINDINGS -------- This was a technically adequate study. The left ventricular size is normal. There is severe concentric left ventricular hypertrophy. Ove rall left ventricular systolic function is normal with, an EF between 55 - 60 %. The right ventricle is normal in size. The left atrial size is normal. The right atrial size is normal. Aortic valve is trileaflet and is mildly thickened. There is mild aortic stenosis present. Peak/m mayur gradient across the Aortic Valve is 25.73mmHg / 14.20mmHg. The mitral valve is normal. The mitral valve leaflets are moderately thickened. Moderate mitral a nnular calcification present. Mild mitral regurgitation is present. Mitral Valve Area by PHT 1.3c m The peak and mean MV gradients are 17.61mmHg 4.52mmHg as measured by doppler. [id number] mitral stenosis. The tricuspid valve appears structurally normal. Mild tricuspid regurgitation present. Right vent ricular systolic pressure is normal at < 35 mmHg. There is no pulmonic regurgitation present. The aortic root size is normal. IVC Not well visulized. CONCLUSIONS -------- 1. The left ventricular size is normal. 2. There is severe concentric left ventricular hypertrophy. 3. Overall left ventricular systolic function is normal with, an EF between 55 - 60 %. 4. Aortic valve is trileaflet and is mildly thickened. 5. There is mild aortic stenosis present. 6. Peak/mean gradient across the Aortic Valve is 25.73mmHg / 14.20mmHg. 7. The mitral valve leaflets are moderately thickened. 8. Moderate mitral annular calcification present. 9. Mitral Valve Stenosis MVA By PHT 1.3cm with a Peak/Mean PG 17.61mmHg 4.52mmHg 10. [id number] mitral stenosis. 11. Mild tricuspid regurgitation present. FLIGHT SECURITY SPECIALIST: Clotilde Ruby RDCS
--- NOTE | 2021-11-27 10:26 | P.CRDCN ---
History of Present Illness Consult date: 11/27/21 History of present illness: CHIEF COMPLAINT: syncope HISTORY OF PRESENT ILLNESS: This is a 86-year-old female with a past medical history significant for aortic stenosis, syncope, and hypertension. Patient follows in the office with Dr Pollack. We have been asked to see the patient in consultation for syncope. Patient presented to the hospital after experiencing a syncopal episode at home. Apparently, the patient was eating with her family when her head went down and she slumped over. The patient was found to be positive for Covid 19. The patient does have a history of syncope. She saw Dr. Pollack in the office in July 2021 and at that time she did not want to undergo any further testing or cardiac workup. orthostatic blood pressures obtained revealed blood pressure supine 186/66. Blood pressure sitting 120/75. Blood pressure standing 96/63. DIAGNOSTICS: EKG reveals sinus mechanism with heart rate of 70. Left anterior fascicular block. Chest xray large right main pulmonary artery on the lateral view. This suggests underlying pulmonary artery hypertension. Strandy atelectasis in the lower lungs. Otherwise no definite acute process. Laboratory data: W BC 3.4. Hemoglobin 13.9. Platelet count 189. D-dimer 1.48. Sodium 135. Potassium 3.4. BUN 27. Creatinine 1.43. Magnesium 1.8. troponin 0.034. 0.035. 0.047. VQ scan: Very low probability for pulmonary embolism echocardiogram completed revealed ejection fraction 55-60%. Mild aortic stenosis. Moderate to severe mitral stenosis. Mild tricuspid regurgitation. Current home cardiac medications include Norvasc 10 mg daily and metoprolol succinate 25 mg daily REVIEW OF SYSTEMS: Thorough review of systems not completed secondary to limited evaluation/examination due to Covid19 PHYSICAL EXAM: Thorough physical exam not completed secondary to limited evaluation/examination due to Covid19 ASSESSMENT: Covid 19 Abnormal troponins, not suggestive of ACS Syncope History of syncopal episodes Orthostatic hypotension Hypertension Valvular heart disease PLAN: Continue telemetry monitoring Per Dr. Krueger, continue Norvasc and metoprolol and begin Midodrine 5 mg 3 times a day Check daily orthostatics ADAMS hose to bilateral lower extremities Further recommendations pending patient course Nurse practitioner note has been reviewed by physician. Signing provider agrees with the documented findings, assessment, and plan of care. Past Medical History Past Medical History: Asthma, Cancer, Hypertension Additional Past Medical History / Comment(s): BREAST CA. History of Any Multi-Drug Resistant Organisms: None Reported Past Surgical History: Breast Surgery, Hysterectomy, Tonsillectomy Additional Past Surgical History / Comment(s): RIGHT BREAST LUMPECTOMY (NO CHEMO OR RAD). VEIN STRIPPING Past Anesthesia/Blood Transfusion Reactions: Postoperative Nausea & Vomiting (PONV) Past Psychological History: Anxiety Smoking Status: Never smoker Past Alcohol Use History: None Reported Past Drug Use History: None Reported - Past Family History Mother Family Medical History: Congestive Heart Failure (CHF) Medications and Allergies Home Medications Medication Instructions Recorded Confirmed Type Metoprolol Succinate [Toprol XL] 25 mg PO DAILY 08/20/16 11/26/21 History amLODIPine [Norvasc] 10 mg PO DAILY 08/20/16 11/26/21 History Albuterol Sulfate [Proair Hfa] 2 puff INHALATION RT-QID 11/26/21 11/26/21 History Fluticasone Propionate [Flovent 2 puff INHALATION RT-BID 11/26/21 11/26/21 History Hfa 44 mcg] Allergies Allergy/AdvReac Type Severity Reaction Status Date / Time azithromycin [From Zithromax] Allergy Rash/Hives Verified 11/26/21 13:00 fluconazole [From Diflucan] Allergy Unknown Verified 11/26/21 13:00 levofloxacin [From Levaquin] Allergy Rash/Hives Verified 11/26/21 13:00 Penicillins Allergy Rash/Hives Verified 11/26/21 13:00 Physical Exam Vitals: Vital Signs Temp Pulse Pulse Pulse Pulse Pulse Pulse 11/27/21 06:58 98.2 F 79 89 75 11/27/21 02:23 80 70 11/27/21 01:06 97.9 F 70 11/26/21 22:33 11/26/21 21:13 80 11/26/21 20:00 97.7 F 80 11/26/21 17:07 11/26/21 16:23 98 F 72 11/26/21 15:34 98.0 F 75 11/26/21 13:48 78 11/26/21 10:41 70 11/26/21 10:34 97.3 F L 68 Resp BP BP BP BP BP Pulse Ox 11/27/21 06:58 18 120/75 96/63 186/66 95 11/27/21 02:23 19 11/27/21 01:06 19 161/83 94 L 11/26/21 22:33 95 11/26/21 21:13 17 11/26/21 20:00 17 174/80 95 11/26/21 17:07 18 11/26/21 16:23 18 204/97 98 11/26/21 15:34 18 185/104 98 11/26/21 13:48 22 167/82 97 11/26/21 10:41 11/26/21 10:34 18 197/93 99 Intake and Output 11/26/21 11/27/21 11/27/21 22:59 06:59 14:59 Other: Voiding Method Toilet Toilet # Voids 3 5 Weight 86.183 kg Results 11/26/21 11:02 11/26/21 11:02 Cardiac Enzymes 11/26/21 11/26/21 11/26/21 Range/Units 11:02 11:02 17:31 AST 34 (14-36) U/L Troponin I 0.034 0.035 H* (0.000-0.034) ng/mL 11/26/21 Range/Units 20:54 AST (14-36) U/L Troponin I 0.047 H* (0.000-0.034) ng/mL Coagulation 11/26/21 Range/Units 11:02 PT 11.4 (9.0-12.0) sec APTT 26.1 (22.0-30.0) sec CBC 11/26/21 Range/Units 11:02 WBC 3.4 L (3.8-10.6) k/uL RBC 4.57 (3.80-5.40) m/uL Hgb 13.9 (11.4-16.0) gm/dL Hct 41.9 (34.0-46.0) % Plt Count 189 (150-450) k/uL Comprehensive Metabolic Panel 11/26/21 Range/Units 11:02 Sodium 135 L (137-145) mmol/L Potassium 3.4 L (3.5-5.1) mmol/L Chloride 101 (98-107) mmol/L Carbon Dioxide 24 (22-30) mmol/L BUN 27 H (7-17) mg/dL Creatinine 1.43 H (0.52-1.04) mg/dL Glucose 117 H (74-99) mg/dL Calcium 8.9 (8.4-10.2) mg/dL AST 34 (14-36) U/L ALT 15 (4-34) U/L Alkaline Phosphatase 118 (38-126) U/L Total Protein 7.0 (6.3-8.2) g/dL Albumin 3.8 (3.5-5.0) g/dL Current Medications Generic Name Dose Route Start Last Admin Trade Name Freq PRN Reason Stop Dose Admin Acetaminophen 500 mg 11/26/21 21:14 11/26/21 21:23 Acetaminophen Tab 500 Mg Tab PO 500 mg Q4HR PRN Administration Fever and/ or Pain Albuterol Sulfate 2 puff 11/26/21 16:00 11/26/21 21:02 Albuterol Hfa Inhaler INHALATION Not Given RT-QID [facility] Alprazolam 0.25 mg 11/26/21 22:33 Alprazolam 0.25 Mg Tab PO Q6HR PRN Anxiety Amlodipine Besylate 10 mg 11/27/21 09:00 11/27/21 07:44 Amlodipine 10 Mg Tab PO 10 mg DAILY [facility] Administration Ascorbic Acid 500 mg 11/27/21 09:00 11/27/21 07:45 Ascorbic Acid 500 Mg Tab PO 500 mg BID [facility] Administration Calcium Carbonate/Glycine 1,000 mg 11/26/21 22:33 Calcium Carbonate 500 Mg Chewable PO Q4HR PRN Dyspepsia Cholecalciferol 125 mcg 11/27/21 09:00 11/27/21 07:44 Cholecalciferol 125 Mcg (5000 Iu) Tablet PO 125 mcg DAILY [facility] Administration Enoxaparin Sodium 40 mg 11/27/21 09:00 11/27/21 07:44 Enoxaparin 40 Mg/0.4 Ml Syringe SQ 40 mg DAILY [facility] Administration Lactulose 20 gm 11/26/21 22:33 Lactulose 20 Gm/30 Ml Cup PO DAILY PRN Constipation Melatonin 1 mg 11/26/21 21:00 11/26/21 21:07 Melatonin 1 Mg Tab PO 1 mg HS [facility] Administration Metoprolol Succinate 25 mg 11/27/21 09:00 Metoprolol Succinate (Er) 25 Mg Tab.Er.24h PO DAILY [facility] Midodrine 5 mg 11/27/21 12:30 Midodrine 5 Mg Tab PO AC-TID [facility] Naloxone HCl 0.2 mg 11/26/21 14:06 Naloxone 0.4 Mg/Ml 1 Ml Vial IV Q2M PRN Opioid Reversal Ondansetron HCl 4 mg 11/26/21 22:33 Ondansetron 4 Mg/2 Ml Vial IVP Q8HR PRN Nausea And Vomiting Zinc Sulfate 220 mg 11/27/21 09:00 11/27/21 07:45 Zinc Sulfate 220 Mg Cap PO 220 mg DAILY [facility] Administration Intake and Output 11/26/21 11/27/21 11/27/21 22:59 06:59 14:59 Other: Voiding Method Toilet Toilet # Voids 3 5 Weight 86.183 kg 11/26/21 11:02 11/26/21 11:02
[2021-11-27] MEDS: ALBUTEROL HFA INHALER INHALATION SCH ×4 (12:27→20:19)
[2021-11-27] MEDS: METOPROLOL SUCCINATE (ER) 25 MG TAB.ER.24H PO SCH (16:30)
[2021-11-27] MEDS: MIDODRINE 5 MG TAB PO SCH ×2 (16:32→17:56)
[2021-11-27 16:43] LABS: African American GFR (CKD) 30 (>60 ml/min/1.73 sqM); Anion Gap 8 mmol/L; Blood Urea Nitrogen 38 mg/dL (7-17); Calcium 8.7 mg/dL (8.4-10.2); Carbon Dioxide 30 mmol/L (22-30); Chloride 97 mmol/L (98-107); Glucose 123 mg/dL (74-99); Non-African American GFR(CKD) 26 (>60 ml/min/1.73 sqM); Sodium 135 mmol/L (137-145)
[2021-11-27 16:47] LABS: Potassium 2.7 mmol/L (3.5-5.1)
[2021-11-27] MEDS: POTASSIUM CHLORIDE ER 20 MEQ TAB.ER PO SCH ×2 (17:49→19:31)
[2021-11-27] MEDS ORDERED: POTASSIUM CHLORIDE ER 20 MEQ TAB.ER PO SCH (18:00)
--- NOTE | 2021-11-27 18:21 | P.PN ---
Progress Note - Text Progress Note Date: 11/27/21 Chief Complaint: Past out This is a pleasant 86-year-old patient who follows with Dr. Nolan. Chronic stable medical conditions include asthma, hypertension. Patient not a good historian. As per the ER physician, patient is eating a meal with the family went head down and she slumped over. She woke up after wards. Patient did not recall the event. She denied any chest pain or shortness of breath at that time. No nausea vomiting. Recently diagnosed with COVID 19. Not vaccinated against the same. Patient does not remember why she is here when I talked to her. And is pleasantly confused. Denies any chest pain or palpitation. No focal weakness. No change in speech or any headache or change in vision. November 27: Sitting up. Eating. She thinks she is at these had 3 episodes of passing out recently. More communicative today. Found to be orthostatic. Midodrine added by cardiology. Review of systems: Was done for constitutional, cardiovascular, GI, pulmonary. relevant finding as above Active Medications Acetaminophen (Acetaminophen Tab 500 Mg Tab) 500 mg PO Q4HR PRN PRN Reason: Fever and/ or Pain Last Admin: 11/26/21 21:23 Dose: 500 mg Documented by: Albuterol Sulfate (Albuterol Hfa Inhaler) 2 puff INHALATION RT-QID [facility] Last Admin: 11/27/21 16:40 Dose: 2 puff Documented by: Alprazolam (Alprazolam 0.25 Mg Tab) 0.25 mg PO Q6HR PRN PRN Reason: Anxiety Amlodipine Besylate (Amlodipine 10 Mg Tab) 10 mg PO DAILY [facility] Last Admin: 11/27/21 07:44 Dose: 10 mg Documented by: Ascorbic Acid (Ascorbic Acid 500 Mg Tab) 500 mg PO BID [facility] Last Admin: 11/27/21 07:45 Dose: 500 mg Documented by: Calcium Carbonate/Glycine (Calcium Carbonate 500 Mg Chewable) 1,000 mg PO Q4HR PRN PRN Reason: Dyspepsia Cholecalciferol (Cholecalciferol 125 Mcg (5000 Iu) Tablet) 125 mcg PO DAILY [facility] Last Admin: 11/27/21 07:44 Dose: 125 mcg Documented by: Enoxaparin Sodium (Enoxaparin 40 Mg/0.4 Ml Syringe) 40 mg SQ DAILY [facility] Last Admin: 11/27/21 07:44 Dose: 40 mg Documented by: Lactulose (Lactulose 20 Gm/30 Ml Cup) 20 gm PO DAILY PRN PRN Reason: Constipation Melatonin (Melatonin 1 Mg Tab) 1 mg PO HS [facility] Last Admin: 11/26/21 21:07 Dose: 1 mg Documented by: Metoprolol Succinate (Metoprolol Succinate (Er) 25 Mg Tab.Er.24h) 25 mg PO DAILY [facility] Last Admin: 11/27/21 16:30 Dose: 25 mg Documented by: Midodrine (Midodrine 5 Mg Tab) 5 mg PO AC-TID [facility] Last Admin: 11/27/21 17:56 Dose: Not Given Documented by: Naloxone HCl (Naloxone 0.4 Mg/Ml 1 Ml Vial) 0.2 mg IV Q2M PRN PRN Reason: Opioid Reversal Ondansetron HCl (Ondansetron 4 Mg/2 Ml Vial) 4 mg IVP Q8HR PRN PRN Reason: Nausea And Vomiting Potassium Chloride (Potassium Chloride Er 20 Meq Tab.Er) 40 meq PO Q1HR [facility] Stop: 11/27/21 19:01 Last Admin: 11/27/21 17:49 Dose: 40 meq Documented by: Zinc Sulfate (Zinc Sulfate 220 Mg Cap) 220 mg PO DAILY [facility] Last Admin: 11/27/21 07:45 Dose: 220 mg Documented by: Past medical history to include: Asthma, hypertension, breast cancer Social history: Denies any history of smoking or alcohol. Lives with her daughter. Family history: Congestive heart failure Physical examination: VITAL SIGNS: 98.2, 79, blood pressure 120/75 [standing] 96/63 [standing] 95% on room air GENERAL: Sitting up in a chair, eating, comfortable EYES: Pupils equal. Conjunctiva normal. HEENT: External appearance of nose and ears normal, oral cavity grossly normal. NECK: JVD not raised; masses not palpable. HEART: First and second heart sounds are normal; no edema. LUNGS: Respiratory rate normal; clear to auscultation. ABDOMEN: Soft, nontender, liver spleen not palpable, no masses palpable. PSYCH: Able tonsil simple questions MUSCULOSKELETAL:No Clubbing/cyanosis;muscles-grossly intact. Evidence of OA NEUROLOGICAL: Cranial nerves grossly intact; no facial asymmetry, power and sensation grossly intact. INVESTIGATIONS, reviewed in the clinical context: Venus 14: Sodium 135 potassium 2.7 BUN 38 creatinine 1.73 2-D echocardiogram: Severe concentric LVH. EF 55-60% White count 3.4 hemoglobin 13.9 platelets 189 d-dimer 1.48 sodium 135 potassium 3.4. 27 creatinine 1.43 Troponin I 0.034, 0.035, 0.047 Coronavirus [PCR]: Detected EKG tracing personally reviewed by me-normal sinus rhythm. Chest x-ray film personally reviewed by me-prominent right pulmonary artery. No obvious infiltrates Previous labs: March 2021: Creatinine 1.3 to Assessment and plan: -Syncope likely from orthostatic. -COVID 19, asymptomatic. Patient denies any shortness of breath or cough. Pulse ox is good. Vitamin C vitamin D zinc. -Moderate to severe mitral stenosis Follow with cardiology -Cognitive impairment -Essential hypertension, Norvasc 10 mg a day, Toprol-XL 25 mg a day -Orthostatic Midodrine added by cardiology -Chronic kidney disease stage III likely from nephrosclerosis. Creatinine was 1.32 in March 2021. Renal ultrasound -Acute kidney injury, likely prerenal from decreased oral intake IV fluids -Intermittent asthma Pro-air HFA 2 puffs 4 times a day . Midodrine added by cardiology. IV fluids started. Repeat labs in the morning. Renal ultrasound. Repeat labs.
[2021-11-27] MEDS: SODIUM CHLORIDE 0.9% 1,000 ML IV SCH (19:32)
--- NOTE | 2021-11-27 19:32 | US ---
EXAMINATION TYPE: US kidneys/renal and bladder DATE OF EXAM: 11/27/2021 COMPARISON: Ultrasound 04/28/2019 CLINICAL HISTORY: assess for CK D. CKD. History of renal cysts EXAM MEASUREMENTS: Right Kidney: 11.7 x 4.2 x 3.9 cm Left Kidney: 10.8 x 4.7 x 4.8 cm Right Kidney: multiple cystic areas, largest = 12.0 x 7.1 x 10.3cm Left Kidney: cystic areas noted, largest = 3.6 x 3.6 x 4.4cm Bladder: not fully distended Bilateral Jets seen: no IMPRESSION: 1. No evidence for obstructive uropathy. 2. Bilateral renal cysts.
[2021-11-27] MEDS: MELATONIN 1 MG TAB PO SCH (20:55)
[2021-11-27] MEDS ORDERED: POTASSIUM CHLORIDE ER 20 MEQ TAB.ER PO STA (21:41)
[2021-11-28] MEDS: ACETAMINOPHEN TAB 500 MG TAB PO PRN (00:14)
[2021-11-28] MEDS: SODIUM CHLORIDE 0.9% 1,000 ML IV SCH (05:56)
[2021-11-28 07:36] LABS: African American GFR (CKD) 37 (>60 ml/min/1.73 sqM); Anion Gap 9 mmol/L; Blood Urea Nitrogen 32 mg/dL (7-17); C Reactive Protein 1.5 mg/dL (<1.0); Calcium 8.9 mg/dL (8.4-10.2); Carbon Dioxide 24 mmol/L (22-30); Chloride 104 mmol/L (98-107); Glucose 105 mg/dL (74-99); Non-African American GFR(CKD) 32 (>60 ml/min/1.73 sqM); Potassium 4.1 mmol/L (3.5-5.1); Sodium 137 mmol/L (137-145)
[2021-11-28] MEDS: CHOLECALCIFEROL 125 MCG (5000 IU) TABLET PO SCH (08:27)
[2021-11-28] MEDS: ASCORBIC ACID 500 MG TAB PO SCH ×2 (08:27→20:22)
[2021-11-28] MEDS: amLODIPine 10 MG TAB PO SCH (08:27)
[2021-11-28] MEDS: MIDODRINE 5 MG TAB PO SCH ×3 (08:27→17:57)
[2021-11-28] MEDS: METOPROLOL SUCCINATE (ER) 25 MG TAB.ER.24H PO SCH (08:27)
[2021-11-28] MEDS: ZINC SULFATE 220 MG CAP PO SCH (08:27)
[2021-11-28] MEDS: ENOXAPARIN 40 MG/0.4 ML SYRINGE SQ SCH (08:27)
[2021-11-28] MEDS: ALBUTEROL HFA INHALER INHALATION SCH ×4 (08:38→20:42)
--- NOTE | 2021-11-28 13:22 | P.PN ---
Subjective Progress Note Date: 11/28/21 Principal diagnosis: Syncope, dehydration This is Jose bhat NP, dictating a progress note on behalf of Dr. Chavez. Patient was interviewed and examined. Patient is a pleasant 86-year-old female who initially presented hospital with syncope and dehydration and COVID-19. Patient was initially found to be positive and orthostatics, and was started on midodrine 5 mg 3 times a day before meals. Today she is significantly hypertensive. Patient otherwise has no complaints at this time. We'll decrease her midodrine to 2.5 mg 3 times a day before meals. GENERAL: Well-appearing, well-nourished and in no acute distress. NECK: Supple without JVD or thyromegaly. LUNGS: Breath sounds clear to auscultation bilaterally. Respiration equal and unlabored. No wheezes, rales or rhonchi. HEART: Regular rate and rhythm without murmurs, rubs or gallops. S1 and S2 heard. EXTREMITIES: Normal range of motion, no edema. No clubbing or cyanosis. Peripheral pulses intact and strong. VITALS: Temp 97.6, pulse 69, respirations 17, orthostatic vital signs-supine and 95/96, sitting 167/100, standing 121/85. TELEMETRY: [Normal sinus rhythm] LABS: [White count 3.4, hemoglobin 13.9, platelets 189, d-dimer is 0.99, sodium 137, potassium 4.1, B1 32, creatinine 1.47, magnesium 1.8, serial troponins-0.034, 0.035, 0.047] IMPRESSION: [Orthostatic hypotension Slightly elevated troponins COVID-19 ] PLAN: [Decrease midodrine 2.5 mg 1 tab 3 times a day before meals Troponins are not indicative of ACS at this time Continue to monitor orthostatic blood pressures steadily Continue other medications as prescribed Further recommendations based on clinical course] The patient has been seen and evaluated. Plan of care has been reviewed and agreed upon by Dr. Chavez. Objective - Vital Signs Vital signs: Vital Signs Temp 97.6 F 11/28/21 09:35 Pulse 72 11/28/21 09:35 Resp 17 11/28/21 09:35 BP 195/96 11/28/21 09:35 Pulse Ox 97 11/28/21 09:35 Intake & Output 11/27/21 11/28/21 11/28/21 18:59 06:59 18:59 Intake Total 600 Balance 600 Intake: Oral 600 Other: Voiding Method Toilet Toilet # Voids 3 2 1 - Labs CBC & Chem 7: 11/26/21 11:02 11/28/21 07:02 Labs: Abnormal Lab Results - Last 24 Hours (Table) 11/27/21 11/27/21 11/27/21 Range/Units 16:20 19:23 20:48 D-Dimer (<0.60) mg/L FEU Sodium 135 L (137-145) mmol/L Potassium 2.7 L* 3.2 L 3.3 L (3.5-5.1) mmol/L Chloride 97 L (98-107) mmol/L BUN 38 H (7-17) mg/dL Creatinine 1.73 H (0.52-1.04) mg/dL Glucose 123 H (74-99) mg/dL C-Reactive Protein (<1.0) mg/dL 11/28/21 11/28/21 Range/Units 07:02 07:02 D-Dimer 0.99 H (<0.60) mg/L FEU Sodium (137-145) mmol/L Potassium (3.5-5.1) mmol/L Chloride (98-107) mmol/L BUN 32 H (7-17) mg/dL Creatinine 1.47 H (0.52-1.04) mg/dL Glucose 105 H (74-99) mg/dL C-Reactive Protein 1.5 H (<1.0) mg/dL
--- NOTE | 2021-11-28 16:08 | P.PN ---
Progress Note - Text Progress Note Date: 11/28/21 Chief Complaint: Past out This is a pleasant 86-year-old patient who follows with Dr. Nolan. Chronic stable medical conditions include asthma, hypertension. Patient not a good historian. As per the ER physician, patient is eating a meal with the family went head down and she slumped over. She woke up after wards. Patient did not recall the event. She denied any chest pain or shortness of breath at that time. No nausea vomiting. Recently diagnosed with COVID 19. Not vaccinated against the same. Patient does not remember why she is here when I talked to her. And is pleasantly confused. Denies any chest pain or palpitation. No focal weakness. No change in speech or any headache or change in vision. November 27: Sitting up. Eating. She thinks she is at these had 3 episodes of passing out recently. More communicative today. Found to be orthostatic. Midodrine added by cardiology. November 28: Feeling better. Oral intake fair. Blood pressure running on the high side. Midodrine dose cut back to 2.5 3 times a day. Review of systems: Was done for constitutional, cardiovascular, GI, pulmonary. relevant finding as above Active Medications Acetaminophen (Acetaminophen Tab 500 Mg Tab) 500 mg PO Q4HR PRN PRN Reason: Fever and/ or Pain Last Admin: 11/28/21 00:14 Dose: 500 mg Documented by: Albuterol Sulfate (Albuterol Hfa Inhaler) 2 puff INHALATION RT-QID [facility] Last Admin: 11/28/21 12:28 Dose: 2 puff Documented by: Alprazolam (Alprazolam 0.25 Mg Tab) 0.25 mg PO Q6HR PRN PRN Reason: Anxiety Amlodipine Besylate (Amlodipine 10 Mg Tab) 10 mg PO DAILY [facility] Last Admin: 11/28/21 08:27 Dose: 10 mg Documented by: Ascorbic Acid (Ascorbic Acid 500 Mg Tab) 500 mg PO BID [facility] Last Admin: 11/28/21 08:27 Dose: 500 mg Documented by: Calcium Carbonate/Glycine (Calcium Carbonate 500 Mg Chewable) 1,000 mg PO Q4HR PRN PRN Reason: Dyspepsia Cholecalciferol (Cholecalciferol 125 Mcg (5000 Iu) Tablet) 125 mcg PO DAILY [facility] Last Admin: 11/28/21 08:27 Dose: 125 mcg Documented by: Enoxaparin Sodium (Enoxaparin 40 Mg/0.4 Ml Syringe) 40 mg SQ DAILY [facility] Last Admin: 11/28/21 08:27 Dose: 40 mg Documented by: Lactulose (Lactulose 20 Gm/30 Ml Cup) 20 gm PO DAILY PRN PRN Reason: Constipation Melatonin (Melatonin 1 Mg Tab) 1 mg PO HS [facility] Last Admin: 11/27/21 20:55 Dose: 1 mg Documented by: Metoprolol Succinate (Metoprolol Succinate (Er) 25 Mg Tab.Er.24h) 25 mg PO DAILY [facility] Last Admin: 11/28/21 08:27 Dose: 25 mg Documented by: Midodrine (Midodrine 5 Mg Tab) 2.5 mg PO AC-TID [facility] Last Admin: 11/28/21 13:38 Dose: 2.5 mg Documented by: Naloxone HCl (Naloxone 0.4 Mg/Ml 1 Ml Vial) 0.2 mg IV Q2M PRN PRN Reason: Opioid Reversal Ondansetron HCl (Ondansetron 4 Mg/2 Ml Vial) 4 mg IVP Q8HR PRN PRN Reason: Nausea And Vomiting Zinc Sulfate (Zinc Sulfate 220 Mg Cap) 220 mg PO DAILY [facility] Last Admin: 11/28/21 08:27 Dose: 220 mg Documented by: Past medical history to include: Asthma, hypertension, breast cancer Social history: Denies any history of smoking or alcohol. Lives with her daughter. Family history: Congestive heart failure Physical examination: VITAL SIGNS: 97.6, 71, standing 121/85, laying down 195/96 GENERAL: Reclining in bed, comfortable EYES: Pupils equal. Conjunctiva normal. HEENT: External appearance of nose and ears normal, oral cavity grossly normal. NECK: JVD not raised; masses not palpable. HEART: First and second heart sounds are normal; no edema. LUNGS: Respiratory rate normal; clear to auscultation. ABDOMEN: Soft, nontender, liver spleen not palpable, no masses palpable. PSYCH: Able to answer simple questions MUSCULOSKELETAL:No Clubbing/cyanosis;muscles-grossly intact. Evidence of OA NEUROLOGICAL: Cranial nerves grossly intact; no facial asymmetry, power and sensation grossly intact. INVESTIGATIONS, reviewed in the clinical context: November 28: D-dimer 0.99 potassium 4.1 creatinine 1.47 Renal ultrasound: No evidence of obstructive uropathy. Bilateral renal cyst November 27: Sodium 135 potassium 2.7 BUN 38 creatinine 1.73 2-D echocardiogram: Severe concentric LVH. EF 55-60% White count 3.4 hemoglobin 13.9 platelets 189 d-dimer 1.48 sodium 135 potassium 3.4. 27 creatinine 1.43 Troponin I 0.034, 0.035, 0.047 Coronavirus [PCR]: Detected EKG tracing personally reviewed by me-normal sinus rhythm. Chest x-ray film personally reviewed by me-prominent right pulmonary artery. No obvious infiltrates Previous labs: March 2021: Creatinine 1.3 to Assessment and plan: -Syncope likely from orthostatic. -COVID 19, asymptomatic. Patient denies any shortness of breath or cough. Pulse ox is good. Vitamin C vitamin D zinc. -Moderate to severe mitral stenosis Follow with cardiology -Cognitive impairment -Essential hypertension, Norvasc 10 mg a day, Toprol-XL 25 mg a day -Orthostatic hypertension significant: Midodrine added by cardiology -Chronic kidney disease stage III likely from nephrosclerosis. Creatinine was 1.32 in March 2021. Renal ultrasound -Acute kidney injury, likely prerenal from decreased oral intake IV fluids -Intermittent asthma Pro-air HFA 2 puffs 4 times a day Dose on midodrine cutback to 2.5 mg 3 times a day. Significant orthostatic still present. IV fluids. Repeat labs.
[2021-11-28] MEDS ORDERED: SODIUM CHLORIDE 0.9% 1,000 ML IV SCH (16:15)
[2021-11-28] MEDS: MELATONIN 1 MG TAB PO SCH (20:22)
[2021-11-29] MEDS: ACETAMINOPHEN TAB 500 MG TAB PO PRN (05:44)
[2021-11-29 08:39] VITALS: RESP 18; TEMP 97.9
[2021-11-29] MEDS: METOPROLOL SUCCINATE (ER) 25 MG TAB.ER.24H PO SCH (08:40)
[2021-11-29] MEDS: MIDODRINE 5 MG TAB PO SCH (08:40)
[2021-11-29] MEDS: ZINC SULFATE 220 MG CAP PO SCH (08:40)
[2021-11-29] MEDS: ENOXAPARIN 40 MG/0.4 ML SYRINGE SQ SCH (08:40)
[2021-11-29] MEDS: ASCORBIC ACID 500 MG TAB PO SCH (08:41)
[2021-11-29] MEDS: amLODIPine 10 MG TAB PO SCH (08:41)
[2021-11-29] MEDS: CHOLECALCIFEROL 125 MCG (5000 IU) TABLET PO SCH (08:41)
[2021-11-29 09:09] VITALS: BP 173/92; PULSE 85
[2021-11-29] MEDS: ALBUTEROL HFA INHALER INHALATION SCH ×2 (09:40→12:29)
[2021-11-29 12:10] LABS: African American GFR (CKD) 42 (>60 ml/min/1.73 sqM); Anion Gap 5 mmol/L; Blood Urea Nitrogen 27 mg/dL (7-17); Calcium 8.6 mg/dL (8.4-10.2); Carbon Dioxide 26 mmol/L (22-30); Chloride 105 mmol/L (98-107); Glucose 107 mg/dL (74-99); Non-African American GFR(CKD) 36 (>60 ml/min/1.73 sqM); Potassium 3.6 mmol/L (3.5-5.1); Sodium 136 mmol/L (137-145)
--- NOTE | 2021-11-29 13:29 | P.PN ---
Subjective Progress Note Date: 11/29/21 This is Jose bhat NP, dictating a progress note on behalf of Dr. Chavez. Patient was interviewed and examined. Patient reports that she is feeling good today. She does remain hypertensive, though her overall blood pressure results have trended down somewhat. She currently denies chest pain and shortness of breath today. GENERAL: Well-appearing, well-nourished and in no acute distress. NECK: Supple without JVD or thyromegaly. LUNGS: Breath sounds clear to auscultation bilaterally. Respiration equal and unlabored. No wheezes, rales or rhonchi. HEART: Regular rate and rhythm without murmurs, rubs or gallops. S1 and S2 heard. EXTREMITIES: Normal range of motion, no edema. No clubbing or cyanosis. Peripheral pulses intact and strong. 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 The patient has been seen and evaluated. Plan of care has been reviewed and agreed upon by Dr. Chavez. Objective - Vital Signs Vital signs: Vital Signs Temp 97.9 F 11/29/21 07:10 Pulse 85 11/29/21 09:08 Resp 18 11/29/21 07:10 BP 173/92 11/29/21 09:08 Pulse Ox 95 11/29/21 07:10 Intake & Output 11/28/21 11/29/21 11/29/21 18:59 06:59 18:59 Intake Total 180 800 400 Balance 180 800 400 Intake: Oral 180 800 400 Other: Voiding Method Toilet # Voids 1 3 1 # Bowel Movements 1 - Labs CBC & Chem 7: 11/26/21 11:02 11/29/21 11:39
--- NOTE | 2021-11-29 17:18 | P.PN ---
Progress Note - Text Progress Note Date: 11/29/21 Chief Complaint: Past out This is a pleasant 86-year-old patient who follows with Dr. Nolan. Chronic stable medical conditions include asthma, hypertension. Patient not a good historian. As per the ER physician, patient is eating a meal with the family went head down and she slumped over. She woke up after wards. Patient did not recall the event. She denied any chest pain or shortness of breath at that time. No nausea vomiting. Recently diagnosed with COVID 19. Not vaccinated against the same. Patient does not remember why she is here when I talked to her. And is pleasantly confused. Denies any chest pain or palpitation. No focal weakness. No change in speech or any headache or change in vision. Patient found to be orthostatic. And also acute kidney injury. Midodrine was tried. Blood pressure elevated. Has discontinued. IV fluids given. Creatinine did drop from 1.73 down to 1.32 . November 29: Systolic blood pressure still running high with the midodrine. Midodrine discontinued. ADAMS stockings. Left except some element of orthostat ics. Careful about getting up and ambulation. Systolic blood pressures higher in the morning move the amlodipine to the evening time. Discussion and discharge planning more than 35 minutes Consultation: Dr. Enrique Chavez from cardiology Past medical history to include: Asthma, hypertension, breast cancer Social history: Denies any history of smoking or alcohol. Lives with her daughter. Family history: Congestive heart failure Physical examination: VITAL SIGNS: 97.9, 82, 18, 161/87, 95% room air GENERAL: Reclining in bed, comfortable EYES: Pupils equal. Conjunctiva normal. HEENT: External appearance of nose and ears normal, oral cavity grossly normal. NECK: JVD not raised; masses not palpable. HEART: First and second heart sounds are normal; no edema. LUNGS: Respiratory rate normal; clear to auscultation. ABDOMEN: Soft, nontender, liver spleen not palpable, no masses palpable. PSYCH: Able to answer simple questions MUSCULOSKELETAL:No Clubbing/cyanosis;muscles-grossly intact. Evidence of OA NEUROLOGICAL: Cranial nerves grossly intact; no facial asymmetry, power and sensation grossly intact. INVESTIGATIONS, reviewed in the clinical context: November 29: BUN 27 creatinine 1.3 to November 28: D-dimer 0.99 potassium 4.1 creatinine 1.47 Renal ultrasound: No evidence of obstructive uropathy. Bilateral renal cyst November 27: Sodium 135 potassium 2.7 BUN 38 creatinine 1.73 2-D echocardiogram: Severe concentric LVH. EF 55-60% White count 3.4 hemoglobin 13.9 platelets 189 d-dimer 1.48 sodium 135 potassium 3.4. 27 creatinine 1.43 Troponin I 0.034, 0.035, 0.047 Coronavirus [PCR]: Detected EKG tracing personally reviewed by me-normal sinus rhythm. Chest x-ray film personally reviewed by me-prominent right pulmonary artery. No obvious infiltrates Previous labs: March 2021: Creatinine 1.3 to Assessment and plan: -Syncope from orthostatic. -COVID 19, asymptomatic. Patient denies any shortness of breath or cough. Pulse ox is good. Vitamin C vitamin D zinc. -Moderate to severe mitral stenosis Follow with cardiology -Cognitive impairment -Essential hypertension, Norvasc 10 mg a day, Toprol-XL 25 mg a day -Orthostatic hypertension significant: Midodrine discontinued -Chronic kidney disease stage III likely from nephrosclerosis. Creatinine was 1.32 in March 2021. Renal ultrasound -Acute kidney injury, likely prerenal from decreased oral intake: Improved IV fluids -Intermittent asthma Pro-air HFA 2 puffs 4 times a day Disposition: Home
== END 2021-11-29 15:28 | disposition home or self-care (01) | DRG 312 ==
LOC: EC 10:31 → 6NMEDSUR 14:10 → OBSVTOIN 11-28 16:28
PROVIDERS: ADMIT Hospitalist; ATTEND Hospitalist
PROC: XW033F6 Introduction of Bamlanivimab Monoclonal Antibody into Peripheral Vein, Percutaneous Approach, New Technology Group 6 (ICD-10-PCS; principal; 2021-11-26)
PROC: XW033E6 Introduction of Etesevimab Monoclonal Antibody into Peripheral Vein, Percutaneous Approach, New Technology Group 6 (ICD-10-PCS; principal; 2021-11-26)
DX: I95.1 Orthostatic hypotension (principal); U07.1 COVID-19; J98.11 Atelectasis; N17.9 Acute kidney failure, unspecified; I13.0 Hypertensive heart and chronic kidney disease with heart failure and stage 1 through stage 4 chronic kidney disease, or unspecified chronic kidney disease; I49.1 Atrial premature depolarization; I50.9 Heart failure, unspecified; I08.3 Combined rheumatic disorders of mitral, aortic and tricuspid valves; I44.4 Left anterior fascicular block; J45.20 Mild intermittent asthma, uncomplicated; R77.8 Other specified abnormalities of plasma proteins; F41.9 Anxiety disorder, unspecified; E86.0 Dehydration; N18.30 Chronic kidney disease, stage 3 unspecified; Z85.3 Personal history of malignant neoplasm of breast; D72.819 Decreased white blood cell count, unspecified; Z79.51 Long term (current) use of inhaled steroids; Z79.899 Other long term (current) drug therapy; Z82.49 Family history of ischemic heart disease and other diseases of the circulatory system; Z90.710 Acquired absence of both cervix and uterus; Z98.890 Other specified postprocedural states; Z88.1 Allergy status to other antibiotic agents; Z88.0 Allergy status to penicillin; Z90.89 Acquired absence of other organs
CPT/HCPCS: 36415; 71046; 76770; 78580; 80048; 80053; 83735; 84132; 84484; 85025; 85379; 85610; 85730; 86140; 87635; 93005; 93306; 94640; 99285